=== PATIENT | male | born 1950 | race African-American/Black ===

== ENCOUNTER 2021-08-21 13:31 | Observation (INO) | payer OTHER ==
--- OUTSIDE RECORDS SUMMARY | 2021-08-21 13:35 | XMS REPORT | Continuity of Care Document ---
:1950 Author Organization [facility] t Address [address] [place] [address] Care Team Providers Name Role Phone Geno Mckinney Primary Care Physician Marquise Mckinney Attending Clinician Unavailable CHERRI Attending Clinician Unavailable Jessica ARIAS Attending Clinician Unavailable Azar ENRIQUE, Gene Attending Clinician Doctor Unassigned, Name Attending Clinician Unavailable Payers Payer Name Policy Type Policy Number Effective Date Expiration Date S daphnie [facility] MEDICARE [id number] 2019 ADVANTAGE HMO 00:00:00 MALCOLM DENG [id number] 2018 PLUS CLASSIC/VALUE 00:00:00 Problems Condition Condition Condition Status Onset Resolution Last Treating Co mments Source Name Details Category Date Date Treatment Clinician Date 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 06-24 Health insufficie insufficie 00:00: ncy ncy 00 Varicose Varicose Disease Active 2020-06 [facility] veins of veins of 0-27 Health both lower both lower 00:00: extremitie extremitie 00 s with s with inflammati inflammati on on No known No known Disease Unive rs active active ity of problems problems [facility] Allergies, Adverse Reactions, Alerts Allergy Allergy Status Severity Reaction(s) Onset Inactive Treating Comm ents Source Name Type Date Date Clinician NO KNOWN Drug Active Univers ALLERGIE Class ity of S [facility] Social History Social Habit Start Date Stop Date Quantity Comments Source History of Current smoker University of tobacco use [facility] Alcohol intake [facility] Tobacco use and 2021-04-11 2021-04-11 Smokeless tobacco [facility] exposure 00:00:00 00:00:00 non-user Alcohol Comment 2018-12-30 2018-12-30 socially Universit y of 00:00:00 00:00:00 [facility] Sex Assigned At [birth year] [facility] 00[facility] 00:00:00 Smoking Status Start Date Stop Date Source Ex-smoker 2021-04-11 00:00:00 2021-04-11 00:00:00 [facility] Medic[facility] Ordered Filled Start Stop Current Ordering Indication Dosage Frequency Signature Comments Components Source Medication Medication Date Date Medication? Clinician (SIG) Name Name enalapril 2020-06 Yes Q12H every 12 [facility] (Vasotec) 0-19 (twelve) Health 20 MG 15:45: hours. tablet 18 metFORMIN 2020-06 Yes Q12H every 12 [facility] (Glucophage 0-19 (twelve) Heal th ) 1000 MG 15:45: hours. tablet 18 propranolol 2020-06 Yes Q12H every 12 [facility] (Inderal) 0-19 (twelve) Health 20 MG 15:45: hours. tablet 18 tamsulosin 2020-06 Yes 1 (one) [facility] (Flomax) 0-19 time each Health 0.4 MG 24 15:45: day at the hr capsule 18 same time. enalapril 2020-06 Yes Q12H every 12 [facility] (Vasotec) 0-19 (twelve) Health 20 MG 15:45: hours. tablet 18 metFORMIN 2020-06 Yes Q12H every 12 [facility] (Glucophage 0-19 (twelve) Heal th ) 1000 MG 15:45: hours. tablet 18 propranolol 2020-06 Yes Q12H every 12 [facility] (Inderal) 0-19 (twelve) Health 20 MG 15:45: hours. tablet 18 tamsulosin 2020-06 Yes 1 (one) [facility] (Flomax) 0-19 time each Health 0.4 MG 24 15:45: day at the hr capsule 18 same time. atorvastati 2020-06 Yes 1{tbl} QD Take 1 [facility] n (Lipitor) 0-19 tablet by Hea lth 10 MG 15:45: mouth 1 tablet 17 (one) time each day. atorvastati 2020-06 Yes 1{tbl} QD Take 1 [facility] n (Lipitor) 0-19 tablet by Hea lth 10 MG 15:45: mouth 1 tablet 17 (one) time each day. glimepiride Yes [facility] (Amaryl) 4 7-31 Health MG tablet 00:00: 00 glimepiride Yes [facility] (Amaryl) 4 7-31 Health MG tablet 00:00: 00 multivitami Yes Take by Un candice n with 12-30 mouth. ity of minerals 21:25: [place] (ONE-A-DAY Medical 50 PLUS Branch ORAL) Cholecalcif Yes Take by Un candice vinay, 12-30 mouth. ity of Vitamin D3, 21:25: [place] 3,000 unit 09 Medical Tab Branch vit B Yes Take by [employer] complex 12-30 mouth. ity of no.12/niaci 21:25: [place] n,B3, 09 Medical (VITAMIN B Branch COMPLEX NO.12-NIACI N ORAL) omega-3 Yes Take by [employer] fatty 12-30 mouth. ity of acids/dha/e 21:25: [place] pa (MEGARED 09 Medical PLANT-OMEGA Branch -3 ORAL) multivitami Yes Take by Un candice n with 12-30 mouth. ity of minerals 21:25: [place] (ONE-A-DAY Medical 50 PLUS Branch ORAL) Cholecalcif Yes Take by Un candice vinay, 12-30 mouth. ity of Vitamin D3, 21:25: [place] 3,000 unit 09 Medical Tab Branch vit B 2019- Yes Take by Aquaporin 12-30 mouth. ity of no.12/niaci 21:25: [place] n,B3, 09 Medical (VITAMIN B Branch COMPLEX NO.12-NIACI N ORAL) omega-3 2019-0 Yes Take by [employer] fatty 12-30 mouth. ity of acids/dha/e 21:25: [place] pa (MEGARED 09 Medical PLANT-OMEGA Branch -3 ORAL) multivitami Yes Take by Un candice n with 12-30 mouth. ity of minerals 21:25: [place] (ONE-A-DAY 09 Medical 50 PLUS Branch ORAL) Cholecalcif 2019-0 Yes Take by Un candice vinay, 7- mouth. ity of Vitamin D3, 21:25: [place] 3,000 unit 09 Medical Tab Branch vit B 2019-0 Yes Take by Univers complex 7- mouth. ity of no.12/niaci 21:25: [place] n,B3, 09 Medical (VITAMIN B Branch COMPLEX NO.12-NIACI N ORAL) omega-3 2018-0 Yes Take by Univer s fatty 7- mouth. ity of acids/dha/e 21:25: [place] pa (MEGARED 09 Medical PLANT-OMEGA Branch -3 ORAL) multivitami 2018-0 Yes Take by Un candice n with 7- mouth. ity of minerals 21:25: [place] (ONE-A-DAY 09 Medical 50 PLUS Branch ORAL) Cholecalcif 0 Yes Take by Un candice vinay, 7- mouth. ity of Vitamin D3, 21:25: [place] 3,000 unit 09 Medical Tab Branch vit B 2019-0 Yes Take by Univers complex 7- mouth. ity of no.12/niaci 21:25: [place] n,B3, 09 Medical (VITAMIN B Branch COMPLEX NO.12-NIACI N ORAL) omega-3 2018- Yes Take by Univer s fatty 7-09 mouth. ity of acids/dha/e 21:25: [place] pa (MEGARED 09 Medical PLANT-OMEGA Branch -3 ORAL) aspirin 0 Yes Take by Univer s (ASPIR-81 7-09 mouth. ity of ORAL) 21:08: [address] aspirin 2018-0 Yes Take by Univer s (ASPIR-81 7-09 mouth. ity of ORAL) 21:08: [address] aspirin 2018-0 Yes Take by Univer s (ASPIR-81 7-09 mouth. ity of ORAL) 21:08: [address] aspirin 2018-0 Yes Take by Univer s (ASPIR-81 7-09 mouth. ity of ORAL) 21:08: [address] Branch atorvastati Yes TAKE 1 Univ ers n 10 mg 6-14 TABLET BY ity of tablet 00:00: MOUTH ONCE [place] 00 DAILY FOR Medical 90 DAYS Branch atorvastati Yes TAKE 1 Univ ers n 10 mg 6-14 TABLET BY ity of tablet 00:00: MOUTH ONCE DAILY FOR Medical 90 DAYS Branch atorvastati Yes TAKE 1 Univ ers n 10 mg 6-14 TABLET BY ity of tablet 00:00: MOUTH ONCE [place] DAILY FOR Medical 90 DAYS Branch atorvastati Yes TAKE 1 Univ ers n 10 mg 6-14 TABLET BY ity of tablet 00:00: MOUTH ONCE DAILY FOR Medical 90 DAYS Branch propranolol Yes Univer s 20 mg 5-07 ity of tablet 00:00: [place] [facility] propranolol 2018-0 Yes Univer s 20 mg 5-07 ity of tablet 00:00: [facility] propranolol Yes Univer s 20 mg 5-07 ity of tablet 00:00: [facility] propranolol Yes Univer s 20 mg 5-07 ity of tablet 00:00: [place] [facility] enalapril Yes Univers (VASOTEC) 8-15 ity of 20 mg 00:00: [place] tablet [facility] glimepiride Yes Univer s (AMARYL) 4 8-15 ity of mg tablet 00:00: [place] [facility] metFORMIN Yes Univers (GLUCOPHAGE 8-15 ity of ) 1,000 mg 00:00: [place] tablet [facility] enalapril Yes Univers (VASOTEC) 8-15 ity of 20 mg 00:00: [place] tablet 00 [facility] glimepiride Yes Univer s (AMARYL) 4 8-15 ity of mg tablet 00:00: [place] [facility] metFORMIN Yes Univers (GLUCOPHAGE 8-15 ity of ) 1,000 mg 00:00: [place] tablet 00 [facility] enalapril Yes Univers (VASOTEC) 8-15 ity of 20 mg 00:00: [place] tablet 00 [facility] glimepiride Yes Univer s (AMARYL) 4 8-15 ity of mg tablet 00:00: [place] [facility] metFORMIN 0 Yes Univers (GLUCOPHAGE 8-15 ity of ) 1,000 mg 00:00: [place] tablet 00 [facility] enalapril Yes Univers (VASOTEC) 8-15 ity of 20 mg 00:00: [place] tablet 00 [facility] glimepiride Yes Univer s (AMARYL) 4 8-15 ity of mg tablet 00:00: [place] 00 [facility] Branch metFORMIN Yes Univers (GLUCOPHAGE 8-15 ity of ) 1,000 mg 00:00: [place] tablet [facility] Branch Propranolol Propranolol Yes Na Mckinney [address] [facility] HCl HCl [facility] Metformin Metformin Yes Na Mckinney [address] [facility] HCl HCl with meals [facility] Tamsulosin Tamsulosin Yes Na Mckinney [address] [facility] HCl HCl [facility] Glyxambi Glyxambi Yes Na Mckinney [address] [facility] Pioglitazon Pioglitazon Yes Na Mckinney [address] [facility] e HCl e HCl [facility] Enalapril Enalapril Yes Na Mckinney [address] [facility] Maleate Maleate [facility] Glimepiride Glimepiride Yes Na Mckinney [address] [facility] with [facility] or the l first main Outpati meal of ent the day Clinics Myrbetriq Myrbetriq Yes Na Mckinney [address] [facility] Amaryl Amaryl Yes Na Mckinney [address] [facility] with food [facility] Gabapentin Gabapentin Yes Na Mckinney [address] [facility] Finasteride Finasteride Yes Na Mckinney [address] [facility] Gabapentin Gabapentin Yes Na Mckinney [address] [facility] Atorvastati Atorvastati Yes Na Mckinney [address] [facility] n Calcium n Calcium [facility] SMZ-TMP DS SMZ-TMP DS Yes Na Mckinney not [facility] defined [facility] Immunizations Ordered Filled Immunization Date Status Comments [facility] e Immunization Name Name FluDULCE FluAD 2019-04-[address] [facility] - 00:00:00 [facility] Prevnar 13 Prevnar 13 2018-07-[address] [facility] - -Pneumonia Vaccine -Pneumonia Vaccine 00:00:00 [facility] Vital Signs Vital Name Observation Time Observation Value Comments Source Systolic blood 2019-01-23 20:42:00 123 mm[Hg] Univer sity of pressure [facility] Diastolic blood 2019-01-23 20:42:00 80 mm[Hg] Unive rsity [facility] Heart rate 2019-01-23 20:42:00 101 /min [facility] Body temperature 2019-01-23 20:42:00 36.67 Natalie [facility] Respiratory rate 2019-01-23 20:42:00 16 /min [facility] Body height 2019-01-23 20:42:00 177.8 cm [facility] Body weight 2019-01-23 20:42:00 82.271 kg [facility] BMI 2019-01-23 20:42:00 26.02 kg/m2 [facility] Procedures Procedure Date / Time Performed Performing Clinician Sourc e MR BRAIN WO CONTRAST 2019-01-22 15:25:00 Bhanu Askew [facility] ASSIGNMENT OF BENEFITS 2019-01-22 14:05:46 Doctor Unassigned, No [facility] Encounters Start End Encounter Admission Attending Care Care Encounter Source Date/Time Date/Time Type Type Clinicians Facility Department ID 2021-07-19 Outpatient Mckinney, Na STLMLC [facility] [id number] [facility] 14:16:00 [id number] [facility] 2021-07-19 Outpatient Mckinney, Na STLMLC STLMLC [id number] [facility] 14:01:34 [id number] [facility] 2021-07-19 Outpatient Mckinney, Na STLMLC STLMLC [id number] [facility] 13:44:11 [id number] [facility] 2021-07-19 Outpatient Mckinney, Na STLMLC STLMLC [id number] [facility] 13:39:45 [id number] [facility] 2021-07-19 Outpatient Mckinney, Na STLMLC STLMLC [id number] [facility] 12:29:08 [id number] [facility] 2021-07-19 Outpatient Mckinney, Na STLMLC STLMLC [id number] [facility] 12:27:34 [id number] [facility] 2021-07-19 Outpatient Mckinney, Na STLMLC STLMLC [id number] [facility] 12:04:29 [id number] [facility] 2021-07-19 Outpatient Mckinney, Na STLMLC STLMLC [id number] [facility] 12:02:37 [id number] [facility] 2021-07-19 Outpatient Mckinney, Na STLMLC STLMLC [id number] [facility] [facility] 11:35:04 [id number] [facility] 2021-07-19 Outpatient Mckinney, Na STLMLC STLMLC [id number] [facility] [facility] 11:20:33 [id number] [facility] 2021-07-19 Outpatient Faye, Na STLMLC STLMLC [id number] [facility] [facility] 11:05:46 [id number] [facility] 2021-07-19 Outpatient Mckinney, Na STLMLC STLMLC [id number] [facility] 11:04:11 [id number] [facility] 2021-04-24 Outpatient [facility] [id number] [place] 11:41:32 [facility] 2021-04-11 Outpatient [facility] [id number] [place] 12:03:23 [facility] 2021-04-11 Outpatient [facility] [id number] [place] 12:01:39 [facility] 2021-03-16 Outpatient CHERRI, [facility] [id number] [place] 13:11:05 [facility] 2021-08-11 2021-08-11 ambulatory [facility]MLC [facility] [id number] [facility] 2021-08-04 2021-08-04 ambulatory [facility]MLC [facility] [id number] [facility] 2021-06-08 2021-06-08 ambulatory [facility]LMLC [facility] [id number] [facility] 2021-06-01 2021-06-01 amb[facility] [id number] [facility] 2021-05-12 2021-05-12 ambulatory [facility] [id number] [facility]00 [facility] 2021-05-04 2021-05-04 ambulatory [facility] [id number] [facility]00 [facility] 2021-05-04 2021-05-04 ambulatory [facility] [id number] [facility] 2021-04-24 2021-04-24 Office ABDULAZIZ Flynn [facility] [id number] [place] 12:20:17 12:23:23 Visit Blaine PFEIFFER [id number] oJseluis [facility] [id number] CLINIC [id number] 2021-04-11 2021-04-11 Office ABDULAZIZ Flynn [facility] [id number] [place] 11:37:35 12:08:38 Visit Blaine LUIS [id number] Joseluis ARENAS 1 [id number] 2021-04-04 2021-04-04 amb[facility] [id number] [facility] 2021-03-15 2021-03-15 Outpatient [facility] [id number] [facility] 2021-02-28 2021-02-28 Outpatient [facility] [id number] [facility] 2021-02-22 2021-02-22 Out[facility] [id number] [facility] 2021-02-22 2021-02-22 Outpatient [facility] [id number] [facility] 2021-02-08 2021-02-08 Outpatient [facility] [id number] [facility] 2021-02-07 2021-02-07 Outpatient [facility] [id number] [facility] 2021-01-30 2021-01-30 Outpatient [facility] [id number] [facility] 2021-01-03 2021-01-03 Outpatient [facility] [id number] [facility] 2020-11-01 2020-11-01 Outpatient [facility] [id number] [facility] 2020-09-21 2020-09-21 Outpatient [facility] [id number] [facility] 2020-08-28 2020-08-28 Outpatient [facility] [id number] Univers 15:10:00 15:10:00 [facility] 2020-08-25 2020-08-25 Outpatient [facility] [id number] [facility] 2020-08-02 2020-08-02 Outpatient [facility] [id number] [facility]00 [facility] 2020-07-31 2020-07-31 Outpatient Dawit ARIAS, [facility] [id number] Univers 15:10:00 15:10:00 KIM [facility] 2020-05-19 2020-05-19 Outpatient [facility] [id number] [facility]00 [facility] 2020-05-02 2020-05-02 Outpatient [facility] [id number] [facility]00 [facility] 2020-04-11 2020-04-11 Outpatient [facility] [id number] [facility]00 [facility] 2020-04-04 2020-04-04 Out[facility] [id number] [facility] 2020-01-29 2020-01-29 [facility] [id number] [facility] 16:00:00 16:00:00 t [employer] [facility] Medicine l Medicine Outpati ent Clinics 2020-01-05 2020-01-05 [facility] [id number] 13:45:00 13:45:[address] [facility] l Medicine Outpati ent Clinics 2019-10-29 2019-10-29 [facility] [id number] [facility] 16:40:00 16:40:00 t [employer] [facility] Medicine l Medicine Outpati ent Clinics 2019-07-31 2019-07-31 [facility] [id number] 16:00:00 16:00:00 [place] [employer] - [facility] Medicine l Medicine Outpati ent Clinics 2019-07-24 2019-07-24 [facility] [id number] [facility] 13:38:00 13:38:00 [place] [employer] - [facility] Medicine l Medicine Outpati ent Clinics 2019-07-22 2019-07-22 [facility] [id number] 14:56:00 14:56:00 t [employer] - Drive [facility] Medicine l Medicine Outpati ent Clinics 2019-04-30 2019-04-30 [facility] [id number] [address] 15:40:00 15:40:00 [place] [employer] - [facility] Medicine Outpati ent Clinics 2019-04-29 2019-04-29 [facility] [id number] 11:01:00 11:01:00 t [place] [employer] [facility] 2019-03-10 2019-03-10 [facility] [id number] 10:42:00 10:42:00 t [place] [employer] [facility] 2019-02-17 2019-02-17 [facility] [id number] 14:40:00 14:40:00 t [place] [employer] [facility] 2019-01-27 2019-01-27 [facility] [id number] [facility] 16:00:00 16:00:00 t [employer] [facility] 2019-01-23 2019-01-23 [place] [id number] [facility] 14:48:40 16:58:59 Visit Bhanu Silva [id number] ity of [place] [id number] [facility] [id number] [facility] 092 Branch [facility] 2019-01-22 2019-01-22 [facility] [id number] Univers 09:11:08 23:59:00 Encounter Bhanu Silva [id number] ity of [place] [id number] [facility] [id number] [facility] 804 Branch 2019-01-22 2019-01-22 Orders Doctor DORSEY [id number] Univers 00:00:00 00:00:00 Only Unassigned, LYUDMILA [id number] ity of [place] [facility] [id number] [facility] [id number] [facility] 009 Branch 2018-12-30 2018-12-30 [facility] [id number] 15:55:00 15:55:00 t [employer] s - Drive [facility] Medicine Outpati ent Clinics 2018-12-03 2018-12-03 [facility] [id number] 16:44:00 16:44:00 t [place] [employer] - Drive [facility] Medicine Outpati ent Clinics 2018-10-07 2018-10-07 [facility] [id number] 09:18:00 09:18:00 t [place] [employer] - Drive [facility] Medicine Outpati ent Clinics 2018-07-30 2018-07-30 [facility] [id number] 15:00:00 15:00:00 t [place] [employer] - Drive [facility] Medicine Outpati ent Clinics 2018-07-22 2018-07-22 [facility] [id number] [facility] 10:45:00 10:45:00 t [place] [employer] [facility] Medicine Outpati ent Clinics 2018-07-03 2018-07-03 [facility] [id number] 15:56:00 15:56:00 t [place] [employer] - [facility] Medicine Outpati ent Clinics 2018-07-03 2018-07-03 [facility] [id number] [facility] 13:29:00 13:29:00 t [place] [employer] [facility] Medicine Outpati ent Clinics 2018-04-24 2018-04-24 Outpatient [facility]MLC [facility] [id number] [facility] 00:00:00 00:00:00 [facility] Outpati ent Clinics 2018-01-22 2018-01-22 [facility] [id number] 15:30:00 15:30:00 t [employer] s - Drive [facility] Medicine Outpati ent Clinics Results Test Description Test Time Test Results Result Source Comments Comments MR BRAIN WO HISTORY: Tremors. Rule U niversity of CONTRAST 1 [place]thalamic [place] 15:42:56 TECHNIQUE: Routine MRI Br anch of the brain was completed without contrastinjection technique. Examination includes sagittal T1/T2 FLAIR/3-D FSPGR,axial T2 FLAIR, DWI/ADC studies. From the 3-D imaging, subsequently axialand coronal reformations were generated. An additional gradient echo T2*axial study was also obtained. FINDINGS: Dual echo DWI images showed no focal areas of restricted protondiffusion, therefore, recent intracranial cytotoxic event is not suspected.Gradient-ech o T2 star images showed no focal areas of abnormal signalsuggestive of hemosiderin effect or abnormal mineral deposition in thebasal ganglia. T2 and FLAIR images showed several 2 mm to 2 cm size hyperintense lesionsin both periventricular as well as peripheral white matter involvingfrontal/parie nolberto/occipital lobes. One small 3 mm lacunar infarction is seenin the white matter adjacent to the atrium of left lateral ventricle. Ventricular system and cortical sulci are within normal limits for thepatient's age. No midline shift or abnormal fluid collection in theextra-axial compartment or pressure effect of the brain detected. Normal signal void of major intracranial vascular structures is preserved.Basal ganglia, brain stem and posterior fossa structures including internalauditory canals and mastoids appear normal. Pituitary gland, parasellar andsuprasellar regions, grossly orbits and retro-orbital regions appearnormal. Note made of mild changes of chronic sinusitis involving all paranasalsinuses with retained secretions in the left maxillary sinus raisingconcern for superimposed mild acute left maxillary sinusitis. CONCLUSION:1. No acute intracranial findings.2. 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 [id number] ischemic white matter degenerative changes in theperiventricular as well as peripheral white matter of both cerebralhemispheres, possibly due to combination of systemic hypertension as wellas small vessel disease. Please correlate with history. [facility], Radiant Results Inft User - 01/22/2019 10:43 AM CDTHISTORY: Tremors. Rule out subthalamic CVA.TECHNIQUE: Routine MRI of the brain was completed without contrastinjection technique. Examination includes sagittal T1/T2 FLAIR/3-D FSPGR,axial T2 FLAIR, DWI/ADC studies. From the 3-D imaging, subsequently axialand coronal reformations were generated. An additional gradient echo T2*axial study was also obtained.FINDINGS: Dual echo DWI images showed no focal areas of restricted protondiffusion, therefore, recent intracranial cytotoxic event is not suspected.Gradient-ech o T2 star images showed no focal areas of abnormal signalsuggestive of hemosiderin effect or abnormal mineral deposition in thebasal ganglia.T2 and FLAIR images showed several 2 mm to 2 cm size hyperintense lesionsin both periventricular as well as peripheral white matter involvingfrontal/parie nolberto/occipital lobes. One small 3 mm lacunar infarction is seenin the white matter adjacent to the atrium of left lateral ventricle.Ventricular system and cortical sulci are within normal limits for thepatient's age. No midline shift or abnormal fluid collection in theextra-axial compartment or pressure effect of the brain detected.Normal signal void of major intracranial vascular structures is preserved.Basal ganglia, brain stem and posterior fossa structures including internalauditory canals and mastoids appear normal. Pituitary gland, parasellar andsuprasellar regions, grossly orbits and retro-orbital regions appearnormal.Note made of mild changes of chronic sinusitis involving all paranasalsinuses with retained secretions in the left maxillary sinus raisingconcern for superimposed mild acute left maxillary sinusitis.CONCLUSION:1 . No acute intracranial findings.2. 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 [id number] ischemic white matter degenerative changes in theperiventricular as well as peripheral white matter of both cerebralhemispheres, possibly due to combination of systemic hypertension as wellas small vessel disease. Please correlate with history.
[2021-08-21] MEDS ORDERED: ONDANSETRON 4 MG/2 ML VIAL ONE (14:40)
[2021-08-21] MEDS ORDERED: MORPHINE 2 MG/ML SYR ONE (14:40)
[2021-08-21 14:59] LABS: Absolute Lymphocytes (CBC) 5.1 K/uL (0.7-4.9); Hematocrit 46.3 % (39.6-49.0); Lymphocytes % 37.9 % (15.3-44.8); MPV 8.6 fL (7.6-11.3); Protime INR 1.1; RBC Red Blood Cell Count 5.16 M/uL (4.33-5.43)
--- NOTE | 2021-08-21 15:11 | RAD REPORT ---
EXAM DESCRIPTION: CT - Chest For Pe Angio - 08/21/2021 3:02 pm CLINICAL HISTORY: Chest pain COMPARISON: None. TECHNIQUE: Dynamically enhanced axial 3 mm thick images of the chest were obtained during administra tion of <100> mL Isovue 370 IV contrast. Coronal and oblique reconstruction images were generated and reviewed. Exam utilizes a protocol for optimal evaluation of pulmonary arterial tree. Maximum intensity projections 3D imaging was utilized All CT scans are performed using dose optimization technique as appropriate and may include automated exposure control or mA/KV adjustment according to patient size. FINDINGS: A pulmonary embolus is not seen. A thoracic aortic aneurysm is not noted. Small right pleural effusion. Mild right lower lobe atelectasis. A pericardial effusion is not seen. Paraseptal emphysema. The largest bleb measures 7 centimeters within left lung. IMPRESSION: Negative for a pulmonary embolism.
[2021-08-21 15:19] LABS: Albumin 3.9 g/dL (3.4-5.0); Bilirubin Direct 0.1 mg/dL (0-0.2); Bilirubin Total 0.3 mg/dL (0.2-1.0); Magnesium 2.4 mg/dL (1.8-2.4); Potassium 4.3 mmol/L (3.5-5.1); Protein, Total 8.3 g/dL (6.4-8.2); Troponin High Sensitivity 5.4 pg/mL (<58.9)
--- NOTE | 2021-08-21 15:19 | RAD REPORT ---
EXAM DESCRIPTION: Lilibeth Single View08/21/2021 2:18 pm CLINICAL HISTORY: Chest pain COMPARISON: 2014 FINDINGS: A small right pleural effusion with mild right basilar atelectasis A few areas of subsegmental atelectasis left lung base Heart is normal size
[2021-08-21] MEDS ORDERED: MORPHINE 4 MG/ML SYR ONE (16:00)
--- NOTE | 2021-08-21 16:45 | RAD REPORT ---
EXAM DESCRIPTION: US - Abdomen Exam Limited - 08/21/2021 4:37 pm CLINICAL HISTORY: Abdominal pain. COMPARISON: None. FINDINGS: The gallbladder wall is not thickened. A gallstone is not seen. The biliary tree is normal caliber. IMPRESSION: Unremarkable gallbladder ultrasound.
--- NOTE | 2021-08-21 16:45 | ER ---
Nurse's Notes [facility] Name: Jose Scott Age: 71 yrs Sex: Male : 1950 Arrival Date: 08/21/2021 Time: 13:33 Bed 6 Private MD: Dilma Mckinney Diagnosis: Chest pain, unspecified Presentation: 08/21 13:42 Chief complaint: Patient states: Pt reports sharp rt sided chest pain that is worse jh6 with deep breath and movement. Sudden onset 2days ago that has been constant. no fever or cough prior. Coronavirus screen: Vaccine status: Patient reports receiving the 2nd dose of the covid vaccine. Ebola Screen: Patient denies travel to an Ebola-affected area in the 21 days before illness onset. Initial Sepsis Screen: Does the patient meet any 2 criteria? Mean Arterial Pressure (MAP) < 65. HR > 90 bpm. Does the patient have a suspected source of infection? No. Patient's initial sepsis screen is negative. Risk Assessment: Do you want to hurt yourself or someone else? Patient reports no desire to harm self or others. Onset of symptoms was August 19, 2021. 13:42 Method Of Arrival: Ambulatory [facility] 13:42 Acuity: SUAD 3 [facility] Triage Assessment: 13:45 General: Appears in no apparent distress. Behavior is calm, cooperative. Pain: [facility] Complains of pain in right breast Pain currently is 5 out of 10 on a pain scale. Quality of pain is described as sharp, shooting, Pain began suddenly, Is continuous, Aggravated by exercise. Cardiovascular: Capillary refill < 3 seconds. Historical: - Allergies: 13:45 No Known Allergies; jh - PMHx: 13:45 Diabetes mellitus; Hypertensive disorder; 6 - Immunization history:: Client reports receiving the 2nd dose of the Covid vaccine. - Social history:: Smoking status: Patient denies any tobacco usage or history of. Screenin:17 Abuse screen: Denies threats or abuse. Nutritional screening: No deficits noted. st1 Tuberculosis screening: No symptoms or risk factors identified. Fall Risk None identified. No fall in past 12 months (0 pts). No secondary diagnosis (0 pts). IV access (20 points). Ambulatory Aid- None/Bed Rest/Nurse Assist (0 pts). Gait- Normal/Bed Rest/Wheelchair (0 pts) Mental Status- Oriented to own ability (0 pts). Total Dominguez Fall Scale indicates No Risk (0-24 pts). Assessment: 14:01 General: Appears in no apparent distress. Behavior is calm, cooperative. Pain: ke1 Complains of pain in chest Pain currently is 5 out of 10 on a pain scale. at worst was 9 out of 10 on a pain scale. level that patient reports is acceptable is 5 out of 10 on a pain scale. Alleviated by rest, Aggravated by exercise, repositioning. Neuro: Level of Consciousness is awake, alert, Oriented to person, place, time, situation. Cardiovascular: Reports chest pain, Heart tones S1 S2 Capillary refill < 3 seconds Patient's skin is warm and dry. Pulses are all present. Respiratory: Airway is patent Breath sounds are clear bilaterally. GI: Abdomen is non-distended. : No deficits noted. 15:15 Reassessment: Patient states symptoms have improved. Pain: Pain currently is 4 out of ke1 10 on a pain scale. 16:00 Pain: Complains of pain in chest Pain currently is 7 out of 10 on a pain scale. ke1 16:35 Reassessment: Patient states symptoms have improved. Pain: Pain currently is 3 out of ke1 10 on a pain scale. 17:39 Reassessment: No changes from previously documented assessment. ke1 19:30 Reassessment: Patient appears in no apparent distress at this time. Patient and/or st1 family updated on plan of care and expected duration. Pain level reassessed. Patient is alert, oriented x 3, equal unlabored respirations, skin warm/dry/pink. The patient is lying in bed in stable condition. Vitals are stable. The patient denies pain 0/10. 20:30 Reassessment: The patient was updated on admission status. st1 Vital Signs: 13:42 BP 142 / 81; Pulse 122; Resp 20; Temp 97.9(TE); Pulse Ox 100% ; Weight 83.01 kg; Height jh6 5 ft. 8 in. (172.72 cm); Pain 5/10; 14:00 BP 146 / 78; Pulse 116; Resp 18; Temp 98.5; Pulse Ox 97% on R/A; ke1 16:00 BP 143 / 82; Pulse 103; Resp 22; Pulse Ox 99% on R/A; ke1 17:30 BP 121 / 101; Pulse 92; Resp 19; Pulse Ox 99% on R/A; ke1 18:30 BP 130 / 71; Pulse 103; Resp 16; Pulse Ox 98% on R/A; st1 20:20 BP 132 / 77; Pulse 95; Resp 16; Pulse Ox 95% on R/A; st1 22:21 BP 120 / 81; Pulse 88; Resp 16; Pulse Ox 99% on R/A; st1 13:42 Body Mass Index 27.82 (83.01 kg, 172.72 cm) 6 Vitals: 14:00 Cardiac Rhythm Assessment Regular Sinus rhythm. ke1 ED Course: 13:33 Patient arrived in ED. am2 13:33 Dilma Mckinney MD is Private Physician. am2 13:44 Triage completed. jh6 13:46 Arm band placed on left wrist. 6 13:50 Brendan Oconnell, PARRIS is Primary Nurse. ke1 13:51 Andre Moore PA is PHCP. [facility] 13:51 Magdiel Pascual MD is Attending Physician. [facility] 13:58 EKG done, by ED staff, reviewed by Andre VIGIL. mb7 14:15 Missed attempt(s): 20 gauge in left forearm. ke1 14:18 XRAY Chest (1 view) In Process Unspecified. EDMS 14:22 Missed attempt(s): 22 gauge in left forearm. ke1 14:45 Missed attempt(s): 22 gauge in left forearm. Bleeding controlled, band aid applied, jd3 catheter tip intact. 14:49 Inserted saline lock: 22 gauge in left antecubital area, using aseptic technique. Blood jd3 collected. 15:01 CT Chest For PE Angio In Process Unspecified. EDMS 16:37 US Abdomen Limited In Process Unspecified. EDMS 16:45 Taras Tomlinson MD is Hospitalizing Provider. [facility] 19:00 Patient has correct armband on for positive identification. Bed in low position. Call st1 light in reach. Side rails up X 1. Pulse ox on. NIBP on. 22:01 No provider procedures requiring assistance completed. Patient maintains SpO2 st1 saturation greater than 95% on room air. 22:18 Patient admitted, IV remains in place. st1 Administered Medications: 14:54 Drug: morphine 2 mg Route: IVP; Site: left antecubital; ke1 15:15 Follow up: Response: Pain is decreased ke1 14:54 Drug: Zofran (Ondansetron) 4 mg Route: IVP; Site: left antecubital; ke1 15:15 Follow up: Response: No adverse reaction ke1 16:06 Drug: morphine 4 mg Route: IVP; Site: left antecubital; ke1 17:33 Follow up: Response: Pain is decreased; RASS: Alert and Calm (0) ke1 17:29 Drug: Aspirin Chewable Tablet 324 mg Route: PO; ke1 Outcome: 16:45 Decision to Hospitalize by Provider. [facility] 22:18 Condition: good st1 22:18 Condition: improved 22:18 Instructed on the need for admit. 23:00 Admitted to Med/surg accompanied by tech, via stretcher, with chart. st1 23:01 Patient left the ED. mw2 Signatures: Dispatcher [employer] EDMS Andre Moore PA PA Tammy Solorzano am2 Johan An RN RN Rodrigo Hardwick mw2 Tawana Justice RN RN jh6 Greer Ramirez mb7 Rose Manzano, RN RN st1 Brendan Oconnell RN RN ke1 Corrections: (The following items were deleted from the chart) 14:05 14:01 Pain: Complains of pain in chest Pain currently is 5 out of 10 on a pain scale. ke1 at worst was 9 out of 10 on a pain scale. level that patient reports is acceptable is 5 out of 10 on a pain scale. Alleviated by rest, Aggravated by exercise, repositioning, ke1 14:50 14:49 Inserted saline lock: 22 gauge in left antecubital area, using aseptic technique. jd3 Blood collected. Missed attempt(s): 22 gauge in left forearm. Bleeding controlled, band aid applied, catheter tip intact. jd3 17:33 16:15 Response: Pain is decreased ke1 ke1 03/01 04:33 02/28 22:[address]1 st1
--- NOTE | 2021-08-21 16:45 | EDPHYS ---
Physician Documentation [facility] Name: Jose Scott Age: 71 yrs Sex: Male : 1950 Arrival Date: 08/21/2021 Time: 13:33 Bed 6 Private MD: Dilma Mckinney ED Physician Magdiel Pascual HPI: 08/21 13:56 This 71 yrs old Black Male presents to ER via Ambulatory with complaints of Chest Pain. jmm 13:56 The patient or guardian reports chest pain that is located primarily in the substernal [facility] area. Onset: gradually, 3 day(s) ago. The pain radiates to Right-sided. Associated signs and symptoms: Pertinent positives: shortness of breath. This is a 71-year-old male with history of diabetes mellitus, hypertension the presents emerged part with complaints of right-sided chest pain beginning approximately 3 to 4 days ago. Patient states that the pain radiates into the mid substernal region. 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 Patient is never seen a cylinder press operator with his PCP.. Historical: - Allergies: 13:45 No Known Allergies; [facility] - PMHx: 13:45 Diabetes mellitus; Hypertensive disorder; [facility] - Immunization history:: Client reports receiving the 2nd dose of the Covid vaccine. - Social history:: Smoking status: Patient denies any tobacco usage or history of. ROS: 13:56 Constitutional: Negative for fever, chills, and weight loss. jmm 13:56 Cardiovascular: Positive for chest pain. 13:56 Respiratory: Positive for shortness of breath. 13:56 All other systems are negative. Exam: 13:56 Constitutional: This is a well developed, well nourished patient who is awake, alert, jmm and in no acute distress. Head/Face: atraumatic. Eyes: EOMI, no conjunctival erythema appreciated ENT: Moist Mucus Membranes Neck: Trachea midline, Supple Cardiovascular: Regular rate and rhythm. No edema appreciated 13:56 Respiratory: Normal respirations, no respiratory distress appreciated Abdomen/GI: Non distended, soft Back: Normal ROM Skin: General appearance color normal MS/ Extremity: Moves all extremities, no obvious deformities appreciated, no edema noted to the lower extremities Neuro: Awake and alert Psych: Behavior is normal, Mood is normal, Patient is cooperative and pleasant 13:56 Chest/axilla: Palpation: tenderness, that is moderate, of the right lateral anterior chest. Vital Signs: 13:42 BP 142 / 81; Pulse 122; Resp 20; Temp 97.9(TE); Pulse Ox 100% ; Weight 83.01 kg; Height 6 5 ft. 8 in. (172.72 cm); Pain 5/10; 14:00 BP 146 / 78; Pulse 116; Resp 18; Temp 98.5; Pulse Ox 97% on R/A; ke1 16:00 BP 143 / 82; Pulse 103; Resp 22; Pulse Ox 99% on R/A; ke1 17:30 BP 121 / 101; Pulse 92; Resp 19; Pulse Ox 99% on R/A; ke1 18:30 BP 130 / 71; Pulse 103; Resp 16; Pulse Ox 98% on R/A; st1 20:20 BP 132 / 77; Pulse 95; Resp 16; Pulse Ox 95% on R/A; st1 22:21 BP 120 / 81; Pulse 88; Resp 16; Pulse Ox 99% on R/A; st1 13:42 Body Mass Index 27.82 (83.01 kg, 172.72 cm) jh6 MDM: 13:56 Patient medically screened. tresa 16:44 Data reviewed: vital signs, nurses notes. Counseling: I had a detailed discussion with conrad the patient and/or guardian regarding: the historical points, exam findings, and any diagnostic results supporting the discharge/admit diagnosis, lab results, radiology results, the need for further work-up and treatment in the hospital. ED course: I discussed the patient with Dr. Tomlinson whom accepted the patient to his service. . 08/21 14:05 Order name: Basic Metabolic Panel; Complete Time: 15:20 [facility] 08/21 14:05 Order name: CBC with Diff; Complete Time: 15:20 [facility] 08/21 14:05 Order name: LFT's; Complete Time: 15:20 [facility] 08/21 14:05 Order name: Magnesium; Complete Time: 15:20 [facility] 08/21 14:05 Order name: NT PRO-BNP; Complete Time: 15:20 [facility] 08/21 14:05 Order name: PT-INR; Complete Time: 15:20 [facility] 08/21 14:05 Order name: Troponin HS; Complete Time: 15:20 [facility] 08/21 14:05 Order name: XRAY Chest (1 view); Complete Time: 15:21 [facility] 08/21 14:06 Order name: COVID-19/FLU A+B (Document "Date of Onset" if Symptomatic) [facility] 08/21 15:25 Order name: CREATININE WHOLE BLOOD; Complete Time: 15:43 [facility] 08/21 16:25 Order name: SARS-COV-2 RT PCR (Document "Date of Onset" if Symptomatic) [facility] 08/21 16:55 Order name: CKMB Creatine Kinase MB [facility] 08/21 16:55 Order name: Creatine Phosphokinase [facility] 08/21 22:56 Order name: Glucose, Ancillary Testing [facility] 08/21 14:05 Order name: EKG; Complete Time: 14:06 [facility] 08/21 14:05 Order name: Cardiac monitoring; Complete Time: 14:06 [facility] 08/21 14:06 Order name: EKG - Nurse/Tech; Complete Time: 14:06 [facility] 08/21 14:06 Order name: IV Saline Lock; Complete Time: 14:55 [facility] 08/21 14:06 Order name: Labs collected and sent; Complete Time: 14:55 [facility] 08/21 14:06 Order name: O2 Per Protocol; Complete Time: 14:06 [facility] 08/21 14:06 Order name: O2 Sat Monitoring; Complete Time: 14:06 [facility] 08/21 14:18 Order name: CT Chest For PE Angio; Complete Time: 15:20 [facility] 08/21 15:57 Order name: US Abdomen Limited; Complete Time: 16:48 [facility] 08/21 16:55 Order name: 60g Consistent Carbohydrate (ADA 1800/1999) EDMS Administered Medications: 14:54 Drug: morphine 2 mg Route: IVP; Site: left antecubital; ke1 15:15 Follow up: Response: Pain is decreased ke1 14:54 Drug: Zofran (Ondansetron) 4 mg Route: IVP; Site: left antecubital; ke1 15:15 Follow up: Response: No adverse reaction ke1 16:06 Drug: morphine 4 mg Route: IVP; Site: left antecubital; ke1 17:33 Follow up: Response: Pain is decreased; RASS: Alert and Calm (0) ke1 17:29 Drug: Aspirin Chewable Tablet 324 mg Route: PO; ke1 Disposition Summary: 08/21/21 16:45 Hospitalization Ordered Hospitalization Status: Observation [facility] Provider: Taras Tomlinson Condition: Stable jmm Problem: new jmm Symptoms: are unchanged jmm Bed/Room Type: Standard jmm Location: Telemetry/MedSurg (observation)(08/21/21 21:04) mw Room Assignment: 419(08/21/21 21:04) Diagnosis - Chest pain, unspecified jmm Forms: - Medication Reconciliation Form jmm - SBAR form jmm Addendum: 08/24/2021 09:24 Co-signature as Attending Physician, Magdiel Pascual MD I agree with the assessment and c ramires plan of care. Signatures: Dispatcher [employer] EDMS Phyllis Pelaez Martha, RN RN Magdiel Leal MD MD cha Mickail, Joel PA PA Tawana Jiang RN RN jh6 Brendan Oconnell RN RN ke1 Corrections: (The following items were deleted from the chart) 08/21 17:42 16:45 Telemetry/MedSurg (observation) [facility] bd 17:42 16:45 jmm bd 21:04 17:42 [facility] ER HOLD bd mw 21:04 17:42 ERHOLD- bd mw
--- NOTE | 2021-08-21 16:51 | P.HP ---
Certification for Inpatient Patient admitted to: Observation With expected LOS: >2 Midnights Patient will require the following post-hospital care: None Practitioner: I am a practitioner with admitting privileges, knowledge of patient current condition, hospital course, and medical plan of care. Services: Services provided to patient in accordance with Admission requirements found in Title 42 Section 412.3 of the Code of Federal Regulations Patient History Date of Service: 08/21/21 Reason for admission: Substernal chest pain History of Present Illness: 71-year-old male with past medical history of hypertension, diabetes mellitus type 2, hyperlipidemia, no previous cardiac history presented because of substernal chest pain radiating to the right side since the last 3 days. Pain is intermittent, no associated palpitation, no prior history of heart burn. On arrival in the ED, vitals were stable, EKG was unremarkable with normal sinus rhythm and no EKG changes. Chest x-ray shows no acute infiltrate. CT shows no evidence of PE but small right-sided pleural effusion. Patient admits to intermittent lower extremity swelling. He denies any exertional dyspnea or paroxysmal nocturnal dyspnea. patient received 2 doses of COVID vaccine. proBNP was normal at 22. He has been admitted for rule out acute coronary syndrome. - Past Medical/Surgical History Has patient received pneumonia vaccine in the past: No Diabetic: No Past Medical History: Reviewed- Non-Contributory -: Hypertension -: Diabetes mellitus Past Surgical History: Reviewed- Non-Contributory - Family History Family History: Reviewed- Non-Contributory - Social History Smoking Status: Current every day smoker Counseled patient to stop smoking for: less than 10 minutes Smoking therapy provided: No Patient receptive to therapy: No Alcohol use: No Place of Residence: Home Review of Systems 10-point ROS is otherwise unremarkable Physical Examination - Physical Exam General: Alert, In no apparent distress, Oriented x3 HEENT: Atraumatic, Normocephalic Neck: 2+ carotid pulse no bruit, JVD not distended Respiratory: Clear to auscultation bilaterally, Normal air movement Cardiovascular: No edema, Regular rate/rhythm, Normal S1 S2 Gastrointestinal: Normal bowel sounds, Soft and benign, Non-distended Musculoskeletal: No clubbing, No swelling Integumentary: No rashes, No breakdown, No significant lesion Neurological: Normal speech, Normal strength at 5/5 x4 extr, Normal tone, Sensation intact External genitalia: No edema, No lesions - Studies Laboratory Data (last 24 hrs) 08/21/21 14:45: PT 12.7 H, INR 1.10 08/21/21 14:45: WBC 13.60 H, Hgb 14.9, Hct 46.3, Plt Count 316 08/21/21 14:45: Sodium 137, Potassium 4.3, BUN 17, Creatinine 1.12, Glucose 179 H, Magnesium 2.4, Total Bilirubin 0.3, AST 11 L, ALT 24, Alkaline Phosphatase 106 Assessment and Plan Discharge Plan: Home - Advance Directives Does patient have a Living Will: No Does patient have a Durable POA for Healthcare: No - Code Status/Comfort Care Code Status Assessed: Yes Code Status: Full Code Physician Review: Patient Assessed, Agree with Above Assessment and Plan Physician Review Additional Text: All CT scans are performed using dose optimization technique as appropriate and may include automated exposure control or mA/KV adjustment according to patient size. FINDINGS: A pulmonary embolus is not seen. A thoracic aortic aneurysm is not noted. Small right pleural effusion. Mild right lower lobe atelectasis. A pericardial effusion is not seen. Paraseptal emphysema. The largest bleb measures 7 centimeters within left lung. IMPRESSION: Negative for a pulmonary embolism. Impression Atypical right-sided chest painpossibly related to pleurisy Hypertension Diabetes mellitus Small right-sided pleural effusion Plan We will do serial set of cardiac enzymes although less likely coronary syndrome at this time We will start empirical antibiotics and colchicine twice daily for 2 to 3 days since possible pleurisy Rule out COVID screen If negative work-up in a.m. patient might benefit from outpatient echocardiogram No urgent need for cardiology consult at this time but will follow DVT prophylaxis with subcutaneous heparin
[2021-08-21] MEDS ORDERED: ONDANSETRON 4 MG/2 ML VIAL IV PRN (16:52)
[2021-08-21] MEDS ORDERED: ALBUTEROL 2.5 MG/3 ML NEB SOL NEB PRN (16:52)
[2021-08-21] MEDS ORDERED: HYDRALAZINE HCL 20 MG/ML VIAL IV PRN (16:53)
[2021-08-21] MEDS ORDERED: guaiFENesin 100 MG/5 ML UCUP PO PRN (16:53)
[2021-08-21] MEDS ORDERED: ASPIRIN 81 MG CHEWABLE TABLET ONE (17:22)
[2021-08-21] MEDS ORDERED: MORPHINE 4 MG/ML SYR IV PRN (17:23)
[2021-08-21 17:42] LABS: SARS-COV-2 RT PCR NEGATIVE (NEGATIVE)
[2021-08-21] MEDS: ENOXAPARIN 40 MG/0.4 ML SQ SCH (18:00)
[2021-08-21] MEDS: CEFTRIAXONE 1,000 MG in NA CHLORIDE 0.9% 50 ML IVPB SCH (18:00)
[2021-08-21] MEDS ORDERED: CEFTRIAXONE 1000 MG/VIAL ONE (18:16)
[2021-08-21] MEDS ORDERED: ENOXAPARIN 40 MG/0.4 ML SQ ONE (18:16)
[2021-08-21] MEDS ORDERED: NA CHLORIDE 0.9% 50 ML ONE (18:17)
[2021-08-21] MEDS: INSULIN -REGULAR HUMAN 50 UNIT/0.5 ML ML SQ SCH (21:00)
[2021-08-21 22:45] VITALS: BMI 25.4
[2021-08-21] MEDS: COLCHICINE 0.6 MG TAB PO SCH (23:29)
[2021-08-22 01:30] LABS: CKMB Creatine Kinase MB 1.2 ng/mL (1.0-3.6)
[2021-08-22 04:01] LABS: Absolute Lymphocytes (CBC) 7.2 K/uL (0.7-4.9); Hematocrit 41.4 % (39.6-49.0); Lymphocytes % 54.6 % (15.3-44.8); MPV 8.8 fL (7.6-11.3); RBC Red Blood Cell Count 4.66 M/uL (4.33-5.43)
[2021-08-22 04:20] LABS: ALT/SGPT 19 U/L (12-78); AST/SGOT 10 U/L (15-37); Albumin 3.2 g/dL (3.4-5.0); Alkaline Phosphatase 87 U/L (45-117); BUN Blood Urea Nitrogen 17 mg/dL (7-18); Bicarbonate 28 mmol/L (21-32); Bilirubin Total 0.3 mg/dL (0.2-1.0); Glucose Level 127 mg/dL (74-106); Protein, Total 6.9 g/dL (6.4-8.2); Sodium Level 138 mmol/L (136-145)
[2021-08-22] MEDS: INSULIN -REGULAR HUMAN 50 UNIT/0.5 ML ML SQ SCH ×2 (07:30→12:46)
[2021-08-22] MEDS: ENOXAPARIN 40 MG/0.4 ML SQ SCH (08:01)
[2021-08-22] MEDS: CEFTRIAXONE 1,000 MG in NA CHLORIDE 0.9% 50 ML IVPB SCH (08:01)
[2021-08-22] MEDS: COLCHICINE 0.6 MG TAB PO SCH (08:01)
[2021-08-22 09:00] VITALS: O2SAT 97
[2021-08-22] MEDS ORDERED: ZINC SULFATE 220 MG CAP PO SCH (09:00)
--- NOTE | 2021-08-22 09:11 | EKG ---
Test Date: 2021-08-21 Test Time: 13:57:24 Fabric Pattern Grader: WILEY MEASUREMENT RESULTS: Intervals: Rate: 111 IN: 164 QRSD: 82 QT: 316 QTc: 429 [place]: P: 70 IN: 164 QRS: 75 T: 48 INTERPRETIVE STATEMENTS: Sinus tachycardia Otherwise normal ECG No previous ECG available for comparison Electronically Signed On 08-22-21 09:09:17 MIXING SUPERVISOR by Steve Villarreal
[2021-08-22 09:28] LABS: CKMB Creatine Kinase MB 1.1 ng/mL (1.0-3.6)
[2021-08-22 12:12] VITALS: BP 129/76; TEMP 98.4
--- NOTE | 2021-08-22 13:42 | P.DS ---
Admission Date: 08/21/21 Discharge Date: 08/22/21 Disposition: ROUTINE DISCHARGE Discharge Condition: FAIR Reason for Admission: Substernal chest pain Brief History of Present Illness: 71-year-old male with past medical history of hypertension, diabetes mellitus type 2, hyperlipidemia, no previous cardiac history presented because of substernal chest pain radiating to the right side since the last 3 days. Pain is intermittent, no associated palpitation, no prior history of heart burn. On arrival in the ED, vitals were stable, EKG was unremarkable with normal sinus rhythm and no EKG changes. Chest x-ray shows no acute infiltrate. CT shows no evidence of PE but small right-sided pleural effusion. Patient admits to intermittent lower extremity swelling. He denies any exertional dyspnea or paroxysmal nocturnal dyspnea. patient received 2 doses of COVID vaccine. proBNP was normal at 22. He has been admitted for rule out acute coronary syndrome. Hospital Course: 71-year-old male with past medical history of hypertension admitted for right chest wall pain pleuritic in nature. Patient has had 3 doses of Covid vaccine. He denies any fever or chills. On presentation he had mild leukocytosis with WBC of [address] scan of the chest with PE protocol shows no evidence of PE but small right-sided pleural effusion. Patient was ruled out with negative cardiac enzymes. Abdominal sonogram shows no gallbladder stone. Patient was managed for empirical pleurisy presumed due to Covid vaccine. His symptoms is somewhat better. He will be discharged home with oral medication for the next 5 to 7 days. Given mild leukocytosis although absence of pneumonic infiltrate on CT scan as well as chest x-ray but patient was empirically started on antibiotics for possible occult pneumonia. Significant imaging studyEXAM DESCRIPTION: CT - Chest For Pe Angio - 08/21/2021 3:02 pm CLINICAL HISTORY: Chest pain COMPARISON: None. TECHNIQUE: Dynamically enhanced axial 3 mm thick images of the chest were obtained during administration of <100> mL Isovue 370 IV contrast. Coronal and oblique reconstruction images were generated and reviewed. Exam utilizes a protocol for optimal evaluation of pulmonary arterial tree. Maximum intensity projections 3D imaging was utilized All CT scans are performed using dose optimization technique as appropriate and may include automated exposure control or mA/KV adjustment according to patient size. FINDINGS: A pulmonary embolus is not seen. A thoracic aortic aneurysm is not noted. Small right pleural effusion. Mild right lower lobe atelectasis. A pericardial effusion is not seen. Paraseptal emphysema. The largest bleb measures 7 centimeters within left lung. IMPRESSION: Negative for a pulmonary embolism Vital Signs/Physical Exam: Temp Pulse Resp BP Pulse Ox 98.4 F 85 18 129/76 98 08/22/21 12:00 08/22/21 12:00 08/22/21 12:00 08/22/21 12:00 08/22/21 12:00 General: Alert, In no apparent distress, Oriented x3 HEENT: Atraumatic, Normocephalic, PERRLA Neck: Supple, 2+ carotid pulse no bruit, JVD not distended Respiratory: Clear to auscultation bilaterally, Normal air movement, Other (mild right rib margin tenderness) Cardiovascular: No edema, Normal pulses, Normal S1 S2 Gastrointestinal: Normal bowel sounds, Soft and benign, Non-distended, No ascites Musculoskeletal: No clubbing, No swelling Integumentary: No rashes, No breakdown, No significant lesion Neurological: Normal gait, Normal speech, Normal strength at 5/5 x4 extr, Normal tone, Cranial nerves 3-12 intact Laboratory Data at Discharge: WBC 13.10 K/uL (4.3-10.9) H 08/22/21 03:34 Hgb 13.4 g/dL (13.6-17.9) L 08/22/21 03:34 Hct 41.4 % (39.6-49.0) 08/22/21 03:34 Plt Count 304 K/uL (152-406) 08/22/21 03:34 PT 12.7 SECONDS (9.5-12.5) H 08/21/21 14:45 INR 1.10 08/21/21 14:45 Sodium 138 mmol/L (136-145) 08/22/21 03:34 Potassium 4.0 mmol/L (3.5-5.1) 08/22/21 03:34 BUN 17 mg/dL (7-18) 08/22/21 03:34 Creatinine 0.89 mg/dL (0.55-1.3) 08/22/21 03:34 Glucose 127 mg/dL (74-106) H 08/22/21 03:34 Magnesium 2.4 mg/dL (1.8-2.4) 08/21/21 14:45 Total Bilirubin 0.3 mg/dL (0.2-1.0) 08/22/21 03:34 AST 10 U/L (15-37) L 08/22/21 03:34 ALT 19 U/L (12-78) 08/22/21 03:34 Alkaline Phosphatase 87 U/L (45-117) 08/22/21 03:34 Home Medications: Aspirin [Aspirin EC 81 MG] 81 mg PO DAILY 08/21/21 Atorvastatin Calcium [Lipitor*] 10 mg PO BEDTIME 08/21/21 Cholecalciferol (Vitamin D3) [Vitamin D3] 3,000 unit PO DAILY 08/21/21 Enalapril Maleate 20 mg PO BID 08/21/21 Glimepiride 4 mg PO BID 08/21/21 Metformin HCl 1,000 mg PO DAILY 08/21/21 Pioglitazone [Actos*] 30 mg PO DAILY 08/21/21 Propranolol [Inderal*] 20 mg PO DAILY 08/21/21 Amox/Clavulanate [Augmentin 875-125 Tab] 875 mg PO BID #10 tab 08/22/21 Colchicine [Colcrys *] 0.6 mg PO BID #10 tab 08/22/21 Guaifenesin/Dextromethorphan [Guaifenesin-Dm ER 1,200-60 mg] 1 each PO BID #10 tab.er.12h 08/22/21 Naproxen/Esomeprazole Mag [Naproxen-Esomepraz Dr 500-20Mg] 1 each PO BID 10 Days #20 tab.ir. 08/22/21 New Medications: Amox/Clavulanate [Augmentin 875-125 Tab] 875 mg PO BID #10 tab Colchicine [Colcrys *] 0.6 mg PO BID #10 tab Guaifenesin/Dextromethorphan [Guaifenesin-Dm ER 1,200-60 mg] 1 each PO BID #10 tab.er.12h Naproxen/Esomeprazole Mag [Naproxen-Esomepraz Dr 500-20Mg] 1 each PO BID 10 Days #20 tab.ir. Diet: ADA Activity: Ad lucas Followup: Dilma Mckinney, DO [Primary Care Provider] - 1 Week Time spent managing pt's care (in minutes): 35
== END 2021-08-22 14:45 | disposition home or self-care (01) ==
LOC: ER 13:31 → ERHOLD 16:52 → 4TH 21:57
PROVIDERS: ADMIT Internal Medicine; ATTEND Internal Medicine
DX: R07.89 Other chest pain (principal); J90 Pleural effusion, not elsewhere classified; I10 Essential (primary) hypertension; E11.9 Type 2 diabetes mellitus without complications; E78.5 Hyperlipidemia, unspecified; Z20.822 Contact with and (suspected) exposure to COVID-19
CPT/HCPCS: 0240U; 36415; 71045; 71275; 76705; 80048; 80053; 80076; 82550; 82553; 82565; 82947; 83735; 83880; 84484; 85025; 85610; 93005; 96374; 96375; 99285; G0378; J1650; J2270; J2405; Q9967

== ENCOUNTER 2022-06-22 09:33 | Emergency (ER) | payer MEDICARE ==
--- OUTSIDE RECORDS SUMMARY | 2022-06-22 09:42 | XMS REPORT | Continuity of Care Document ---
:[address] [facility] Address [address] [place] [address] Care Team Providers Name Role Phone Dilma Mckinney Primary Care Physician Dilma Mckinney Attending Clinician Unavailable BLAINE FLYNN Attending Clinician Unavailable Ye Escalona Attending Clinician Mariano Attending Clinician Unavailable Otilio_Ayah Attending Clinician Unavailable KIM ARIAS Attending Clinician Unavailable Alban Prescott Attending Clinician Unavailable Bhanu Askew MD Attending Clinician Doctor Unassigned, Arnold Attending Clinician Unavailable Thomas_Ayah Admitting Clinician Unavailable Delchay_T Admitting Clinician Unavailable Payers Payer Name Policy Type Policy Number Effective Date Expiration Date S daphnie [employer] MEDICARE [id number] 2019 ADVANTAGE HMO 00:00:00 FORMERLY [facility] [id number] (MEDICARE 00:00:00 REPLACEMENT HMO) [employer] MEDICARE 53 [id number] 2019 Common 00:00:00 [facility] MEDICARE ZACITAS ARCADIO [id number] [facility] MEDICARE NOVITAS MB [id number] [facility] MEDICARE NOVITAS MB [id number] Common [facility] HUMANA MEDICARE C1 [id number] 2019 Common 00:00:00 [facility] HU[employer]NA MEDICARE C1 [id number] 2019 Common 00:00:00 [facility] HU[employer] MEDICARE C1 [id number] 2019 Common 00:00:00 [facility] HUMAN MEDICARE C1 [id number] 2019 Common 00:00:00 [facility] WELLCARE ISH [id number] 2018 PLUS 00:00:00 CLASSIC/VALUE Problems Condition Condition Condition Status Onset Resolution Last Treating Co mments Source Name Details Category Date Date Treatment Clinician Date 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 [place] venous venous 06-24 Health insufficie insufficie 00:00: ncy ncy 00 Varicose Varicose Disease Active 2020-06 ND veins of veins of 0-27 Health both lower both lower 00:00: extremitie extremitie 00 s with s with inflammati inflammati on on No known No known Disease Unive rs active active ity of problems problems [facility] [id number] Other Problem Common chronic [facility] pain [facility] [id number] Uncontroll Problem Co mmon ed type 2 [facility] diabetes - [facility]I mellitus [facility] complicati Medica l on, Center without long-term current use of insulin Diabetes Diabetes Problem Commo n mellitus [facility] without - [facility]I complicati [facility] Essential Benign Problem Common hypertensi essential Spi rit on HTN [facility] [id number] Kel[place] of Problem Comm on skin [facility] Pure Pure Problem Common hyperchole hyperchole Sp abi sterolemia sterolemia [facility] [id number] Tremor Problem Common [facility] Hypercalce Hypercalce Problem C [facility] Asbestosis Asbestosis Problem C [facility] Impotence Erectile Problem Comm on of organic dysfunctio Sp abi origin n, - [facility]I unspecifie [facility] dysfunctio Medica l n type Center Osteoarthr Osteoarthr Problem C ommon itis itis [facility] [id number] Anemia, Problem Commo n unspecifie Spirit d type - [facility] [id number] Elevated Problem Commo n lymphocyte Spirit s - [facility] Iron Iron Problem Common deficiency deficiency Sp abi anemia due anemia due - CHI to dietary to dietary [facility] Iron Iron Problem Common deficiency deficiency Sp abi anemia anemia, - CHI unspecifie St d iron [facility] deficiency Medica l anemia Center type Allergies, Adverse Reactions, Alerts Allergy Allergy Status Severity Reaction(s) Onset Inactive Treating Comm ents Source Name Type Date Date Clinician No Known DA Active U 2019-06 [facility] 2 Allergie 00:00: s 00 No Known DA Active U 2019-06 [facility] 07-16 Allergie 00:00: s 00 NO KNOWN Drug Active Univers ALLERGIE Class ity of S [facility] Social History Social Habit Start Date Stop Date Quantity Comments Source Alcohol intake [facility] History of [facility] - Tobacco Use [facility] Sex Assigned At Common Sp abi - [facility] Tobacco use and 2021-04-11 2021-04-11 Smokeless tobacco [facility] exposure 00:00:00 00:00:00 non-user Alcohol Comment 2018-12-30 2018-12-30 socially Universit y of 00:00:00 00:00:00 [facility] Smoking Status Start Date Stop Date Source Former Smoker 2022-03-16 00:00:00 2022-03-16 00:00:00 [facility] pirit [facility] Never Smoker [facility] Medications Ordered Filled Start Stop Current Ordering [...] tablet 00:00: 00 multivitami Yes Take by Uni vers n with 12-30 mouth. ity of minerals 21:25: [place] (ONE-A-DAY 09 Medical 50 PLUS Branch ORAL) Cholecalcif Yes Take by [employer] vers vinay, 12-30 mouth. ity of Vitamin D3, 21:25: [place] 3,000 unit 09 Medical Tab Branch vit B Yes Take by Univers complex 12-30 mouth. ity of no.12/niaci 21:25: [place] n,B3, 09 Medical (VITAMIN B Branch COMPLEX NO.12-NIACI N ORAL) omega-3 Yes Take by [employer] fatty 12-30 mouth. ity of acids/dha/e 21:25: [place] (MEGARED 09 Medical PLANT-OMEGA Branch -3 ORAL) multivitami 2019-0 Yes Take by Uni vers n with 7- mouth. ity of minerals 21:25: [place] (ONE-A-DAY 09 Medical 50 PLUS Branch ORAL) Cholecalcif 2019-0 Yes Take by Uni vers vinay, 7- mouth. ity of Vitamin D3, 21:25: [place] 3,000 unit 09 Medical Tab Branch vit B 2019-0 Yes Take by Univers complex 7- mouth. ity of no.12/niaci 21:25: [place] n,B3, 09 Medical (VITAMIN B Branch COMPLEX NO.12-NIACI N ORAL) omega-3 2019-0 Yes Take by Univers fatty 12-30 mouth. ity of acids/dha/e 21:25: [place] (MEGARED 09 Medical PLANT-OMEGA Branch -3 ORAL) multivitami 2018-0 Yes Take by Uni vers n with 7- mouth. ity of minerals 21:25: [place] (ONE-A-DAY 09 Medical 50 PLUS Branch ORAL) Cholecalcif 2019-0 Yes Take by Uni vers vinay, 7- mouth. ity of Vitamin D3, 21:25: [place] 3,000 unit 09 Medical Tab Branch vit B 2019-0 Yes Take by Univers complex 7 mouth. ity of no.12/niaci 21:25: [place] n,B3, 09 Medical (VITAMIN B Branch COMPLEX NO.12-NIACI N ORAL) omega-3 2019-0 Yes Take by Univers fatty 12-30 mouth. ity of acids/dha/e 21:25: [place] pa (MEGARED 09 Medical PLANT-OMEGA Branch -3 ORAL) multivitami 2019-0 Yes Take by Uni vers n with 7-09 mouth. ity of minerals 21:25: [place] (ONE-A-DAY 09 Medical 50 PLUS Branch ORAL) Cholecalcif 2019-0 Yes Take by Uni vers vinay, 7- mouth. ity of Vitamin D3, 21:25: [place] 3,000 unit 09 Medical Tab Branch vit B 2019-0 Yes Take by Univers complex 7- mouth. ity of no.12/niaci 21:25: [place] n,B3, 09 Medical (VITAMIN B Branch COMPLEX NO.12-NIACI N ORAL) omega-3 2019-0 Yes Take by Univers fatty 12-30 mouth. ity of acids/dha/e 21:25: [place] (MEGARED 09 Medical PLANT-OMEGA Branch -3 ORAL) aspirin Yes Take by Univers (ASPIR-81 7-09 mouth. ity of ORAL) 21:08: [address] aspirin Yes Take by Univers (ASPIR-81 7-09 mouth. ity of ORAL) 21:08: [address] aspirin Yes Take by Univers (ASPIR-81 7-09 mouth. ity of ORAL) 21:08: [address] aspirin Yes Take by Univers (ASPIR-81 7-09 mouth. ity of ORAL) 21:08: [address] Branch atorvastati Yes TAKE 1 Univ [...] BY ity of tablet 00:00: MOUTH ONCE [place] DAILY FOR Medical 90 DAYS Branch propranolol 2018- Yes Univer s 20 mg 5-07 ity of tablet 00:00: 00 Medical Branch propranolol 2019-0 Yes Univer s 20 mg 5-07 ity of tablet 00:00: Medical Branch propranolol 2019-0 Yes Univer s 20 mg 5-07 ity of tablet 00:00: 00 Medical Branch propranolol 2018-0 Yes Univer s 20 mg 5-07 ity of tablet 00:00: 00 Medical Branch enalapril Yes Univers (VASOTEC) 8-15 ity of 20 mg 00:00: [place] tablet 00 Medical Branch glimepiride Yes Univer s (AMARYL) 4 8-15 ity of mg tablet 00:00: 00 Medical Branch metFORMIN Yes Univers (GLUCOPHAGE 8-15 ity of ) 1,000 mg 00:00: [place] tablet 00 Medical Branch enalapril Yes Univers (VASOTEC) 8-15 ity of 20 mg 00:00: [place] tablet 00 [facility] glimepiride Yes Univer s (AMARYL) 4 8-15 ity of mg tablet 00:00: [place] 00 [facility] metFORMIN Yes Univers (GLUCOPHAGE 8-15 ity of ) 1,000 mg 00:00: [place] tablet 00 [facility] enalapril Yes Univers (VASOTEC) 8-15 ity of 20 mg 00:00: [place] tablet 00 [facility] glimepiride Yes Univer s (AMARYL) 4 8-15 ity of mg tablet 00:00: [place] [facility] metFORMIN Yes Univers (GLUCOPHAGE 8-15 ity of ) 1,000 mg 00:00: [place] tablet 00 [facility] enalapril Yes Univers (VASOTEC) 8-15 ity of 20 mg 00:00: [place] tablet [facility] glimepiride Yes Univer s (AMARYL) 4 8-15 ity of mg tablet 00:00: [place] [facility] metFORMIN Yes Univers (GLUCOPHAGE 8-15 ity of ) 1,000 mg 00:00: [place] tablet 00 [facility] Propranolol Propranolol Yes Na Mckinney 1 tablet Common HCl HCl [facility] Metformin Metformin Yes Na Mckinney 1 tablet Common HCl HCl with meals [facility] Tamsulosin Tamsulosin Yes Na Mckinney 1 capsule Common HCl HCl [facility] Glyxambi Glyxambi Yes Na Mckinney 1 Comm on [facility] Pioglitazon Pioglitazon Yes Na Mckinney 1 tablet Common e HCl e HCl [facility] Enalapril Enalapril Yes Na Mckinney 1 tablet Common Maleate Maleate [facility] Glimepiride Glimepiride Yes Na Mckinney 1 tablet Common with Spirit breakfast - CHI or the [facility] meal of Medical the day [place] Myrbetriq Myrbetriq Yes Na Mckinney 1 tablet Common [facility] Amaryl Amaryl Yes Na Mckinney 1 tablet Comm on with food [facility] Gabapentin Gabapentin Yes Na Mckinney 1 capsule Common [facility] Finasteride Finasteride Yes Na Mckinney 1 tablet Common [facility] Gabapentin Gabapentin Yes Na Mckinney 1 capsule [facility] Atorvastati Atorvastati Yes Na Mckinney 1 tablet Common n Calcium n Calcium Spiri [facility] SMZ-TMP DS SMZ-TMP DS Yes Na Mckinney not Common defined [facility] Potassium Potassium No 1{table Potassium Chloride ER Chloride ER t_with_ Chloride 20 MEQ 20 MEQ food} ER 20 MEQ SMZ-TMP DS SMZ-TMP DS No SMZ-TMP DS Oxybutynin Oxybutynin No 1{table QD Oxybutynin Chloride 5 Chloride 5 t} Chloride 5 MG MG MG Myrbetriq Myrbetriq No 1{table BID Myrbetriq 25 MG 25 MG t} 25 MG Furosemide Furosemide No 1{table Furosemide 40 MG 40 MG t} 40 MG Amaryl 4 MG Amaryl 4 MG No 1{table BID Amaryl 4 t_with_ MG food} Potassium Potassium No 1{table Potassium Chloride ER Chloride ER t_with_ Chloride 20 MEQ 20 MEQ food} ER 20 MEQ Tamsulosin Tamsulosin No 1{capsu QD Tamsulosin HCl 0.4 MG HCl 0.4 MG le} HCl 0.4 MG Pioglitazon Pioglitazon No 1{table QD Pioglitazo e HCl 30 MG e HCl 30 MG t} ne HCl 30 MG Glyxambi Glyxambi No Glyxambi 25-5 MG 25-5 MG 25-5 MG Glyxambi Glyxambi No Glyxambi 25mg/5mg 25mg/5mg 25mg/5mg Aspirin 81 Aspirin 81 No 1{table QD Aspirin 81 81 MG 81 MG t} 81 MG Oxybutynin Oxybutynin No 1{table QD Oxybutynin Chloride 5 Chloride 5 t} Chloride 5 MG MG MG Glimepiride Glimepiride No 1{table QD Glimepirid 4 MG 4 MG t_with_ e [address]_or_t he_firs t_main_ meal_of _the_da y} Myrbetriq Myrbetriq No 1{table BID Myrbetriq 25 MG 25 MG t} 25 MG Enalapril Enalapril No 1{table BID Enalapril Maleate 20 Maleate 20 t} Maleate 20 MG MG MG Propranolol Propranolol No 1{table BID Propranolo HCl 20 MG HCl 20 MG t} l HCl 20 MG Finasteride Finasteride No 1{table QD Finasterid 5 MG 5 MG t} e 5 MG Propranolol Propranolol No 1{table QD Propranolo HCl 20 MG HCl 20 MG t} l HCl 20 MG Gabapentin Gabapentin No 1{capsu Gabapentin 300 MG 300 MG le} 300 MG metFORMIN metFORMIN No 1{table BID metFORMIN HCl 1000 MG HCl 1000 MG t_with_ HCl 1000 meals} MG SMZ-TMP DS SMZ-TMP DS No SMZ-TMP DS Gabapentin Gabapentin No 1{capsu Gabapentin 300 MG 300 MG le} 300 MG Atorvastati Atorvastati No 1{table QD Atorvastat n Calcium n Calcium t} in Calcium 10 MG 10 MG 10 MG Enalapril Enalapril No 1{table BID Enalapril Maleate 20 Maleate 20 t} Maleate 20 MG MG MG Glyxambi Glyxambi No Glyxambi 25mg/5mg 25mg/5mg 25mg/5mg Amaryl 4 MG Amaryl 4 MG No 1{table BID Amaryl 4 t_with_ MG food} Gabapentin Gabapentin No 1{capsu Gabapentin 300 MG 300 MG le} 300 MG Tamsulosin Tamsulosin No 1{capsu QD Tamsulosin HCl 0.4 MG HCl 0.4 MG le} HCl 0.4 MG Gabapentin Gabapentin No 1{capsu Gabapentin 300 MG 300 MG le} 300 MG Atorvastati Atorvastati No 1{table QD Atorvastat n Calcium n Calcium t} in Calcium 10 MG 10 MG 10 MG Aspirin 81 Aspirin 81 No 1{table QD Aspirin 81 81 MG 81 MG t} 81 MG Furosemide Furosemide No 1{table Furosemide 40 MG 40 MG t} 40 MG Glimepiride Glimepiride No 1{table QD Glimepirid 4 MG 4 MG t_with_ e [address]_or_t he_firs t_main_ meal_of _the_da y} Propranolol Propranolol No 1{table BID Propranolo HCl 20 MG HCl 20 MG t} l HCl 20 MG metFORMIN metFORMIN No 1{table BID metFORMIN HCl 1000 MG HCl 1000 MG t_with_ HCl 1000 meals} MG Pioglitazon Pioglitazon No 1{table QD Pioglitazo e HCl 30 MG e HCl 30 MG t} ne HCl 30 MG Glyxambi Glyxambi No Glyxambi 25-5 MG 25-5 MG 25-5 MG SMZ-TMP DS SMZ-TMP DS No SMZ-TMP DS Propranolol Propranolol No 1{table QD Propranolo HCl 20 MG HCl 20 MG t} l HCl 20 MG Oxybutynin Oxybutynin No 1{table QD Oxybutynin Chloride 5 Chloride 5 t} Chloride 5 MG MG MG Finasteride Finasteride No 1{table QD Finasterid 5 MG 5 MG t} e 5 MG Trulicity Trulicity No Trulicity 0.75 0.75 0.75 MG/0.5ML MG/0.5ML MG/0.5ML Potassium Potassium No 1{table Potassium Chloride ER Chloride ER t_with_ Chloride 20 MEQ 20 MEQ food} ER 20 MEQ Myrbetriq Myrbetriq No 1{table BID Myrbetriq 25 MG 25 MG t} 25 MG Enalapril Enalapril No 1{table BID Enalapril Maleate 20 Maleate 20 t} Maleate 20 MG MG MG Glyxambi Glyxambi No Glyxambi 25mg/5mg 25mg/5mg 25mg/5mg Amaryl 4 MG Amaryl 4 MG No 1{table BID Amaryl 4 t_with_ MG food} Gabapentin Gabapentin No 1{capsu Gabapentin 300 MG 300 MG le} 300 MG Tamsulosin Tamsulosin No 1{capsu QD Tamsulosin HCl 0.4 MG HCl 0.4 MG le} HCl 0.4 MG Gabapentin Gabapentin No 1{capsu Gabapentin 300 MG 300 MG le} 300 MG Atorvastati Atorvastati No 1{table QD Atorvastat n Calcium n Calcium t} in Calcium 10 MG 10 MG 10 MG Aspirin 81 Aspirin 81 No 1{table QD Aspirin 81 81 MG 81 MG t} 81 MG Furosemide Furosemide No 1{table Furosemide 40 MG 40 MG t} 40 MG Glimepiride Glimepiride No 1{table QD Glimepirid 4 MG 4 MG t_with_ e [address]_or_t he_firs t_main_ meal_of _the_da y} Propranolol Propranolol No 1{table BID Propranolo HCl 20 MG HCl 20 MG t} l HCl 20 MG metFORMIN metFORMIN No 1{table BID metFORMIN HCl 1000 MG HCl 1000 MG t_with_ HCl 1000 meals} MG Pioglitazon Pioglitazon No 1{table QD Pioglitazo e HCl 30 MG e HCl 30 MG t} ne HCl 30 MG Glyxambi Glyxambi No Glyxambi 25-5 MG 25-5 MG 25-5 MG SMZ-TMP DS SMZ-TMP DS No SMZ-TMP DS Propranolol Propranolol No 1{table QD Propranolo HCl 20 MG HCl 20 MG t} l HCl 20 MG Oxybutynin Oxybutynin No 1{table QD Oxybutynin Chloride 5 Chloride 5 t} Chloride 5 MG MG MG Finasteride Finasteride No 1{table QD Finasterid 5 MG 5 MG t} e 5 MG Trulicity Trulicity No Trulicity 0.75 0.75 0.75 MG/0.5ML MG/0.5ML MG/0.5ML Potassium Potassium No 1{table Potassium Chloride ER Chloride ER t_with_ Chloride 20 MEQ 20 MEQ food} ER 20 MEQ Myrbetriq Myrbetriq No 1{table BID Myrbetriq 25 MG 25 MG t} 25 MG Gabapentin Gabapentin No 1{capsu Gabapentin 300 MG 300 MG le} 300 MG Glyxambi Glyxambi No Glyxambi 25mg/5mg 25mg/5mg 25mg/5mg Finasteride Finasteride No 1{table QD Finasterid 5 MG 5 MG t} e 5 MG Aspirin 81 Aspirin 81 No 1{table QD Aspirin 81 81 MG 81 MG t} 81 MG Amaryl 4 MG Amaryl 4 MG No 1{table BID Amaryl 4 t_with_ MG food} SMZ-TMP DS SMZ-TMP DS No SMZ-TMP DS metFORMIN metFORMIN No 1{table BID metFORMIN HCl 1000 MG HCl 1000 MG t_with_ HCl 1000 meals} MG Oxybutynin Oxybutynin No 1{table QD Oxybutynin Chloride 5 Chloride 5 t} Chloride 5 MG MG MG Enalapril Enalapril No 1{table BID Enalapril Maleate 20 Maleate 20 t} Maleate 20 MG MG MG Furosemide Furosemide No 1{table Furosemide 40 MG 40 MG t} 40 MG Trulicity Trulicity No Trulicity 0.75 0.75 0.75 MG/0.5ML MG/0.5ML MG/0.5ML Atorvastati Atorvastati No Atorvastat n Calcium n Calcium in Calcium 10 MG 10 MG 10 MG Glyxambi Glyxambi No Glyxambi 25-5 MG 25-5 MG 25-5 MG Pioglitazon Pioglitazon No 1{table QD Pioglitazo e HCl 30 MG e HCl 30 MG t} ne HCl 30 MG Myrbetriq Myrbetriq No 1{table BID Myrbetriq 25 MG 25 MG t} 25 MG Propranolol Propranolol No 1{table BID Propranolo HCl 20 MG HCl 20 MG t} l HCl 20 MG Gabapentin Gabapentin No 1{capsu Gabapentin 300 MG 300 MG le} 300 MG Tamsulosin Tamsulosin No 1{capsu QD Tamsulosin HCl 0.4 MG HCl 0.4 MG le} HCl 0.4 MG Potassium Potassium No 1{table Potassium Chloride ER Chloride ER t_with_ Chloride 20 MEQ 20 MEQ food} ER 20 MEQ Glimepiride Glimepiride No Glimepirid 4 MG 4 MG e 4 MG Propranolol Propranolol No 1{table QD Propranolo HCl 20 MG HCl 20 MG t} l HCl 20 MG Amaryl 4 MG Amaryl 4 MG No 1{table BID Amaryl 4 t_with_ MG food} Finasteride Finasteride No 1{table QD Finasterid 5 MG 5 MG t} e 5 MG Furosemide Furosemide No 1{table Furosemide 40 MG 40 MG t} 40 MG Atorvastati Atorvastati No Atorvastat n Calcium n Calcium in Calcium 10 MG 10 MG 10 MG Gabapentin Gabapentin No 1{capsu Gabapentin 300 MG 300 MG le} 300 MG Myrbetriq Myrbetriq No 1{table BID Myrbetriq 25 MG 25 MG t} 25 MG Potassium Potassium No 1{table Potassium Chloride ER Chloride ER t_with_ Chloride 20 MEQ 20 MEQ food} ER 20 MEQ Tamsulosin Tamsulosin No 1{capsu QD Tamsulosin HCl 0.4 MG HCl 0.4 MG le} HCl 0.4 MG Oxybutynin Oxybutynin No 1{table QD Oxybutynin Chloride 5 Chloride 5 t} Chloride 5 MG MG MG Propranolol Propranolol No 1{table BID Propranolo HCl 20 MG HCl 20 MG t} l HCl 20 MG Propranolol Propranolol No 1{table QD Propranolo HCl 20 MG HCl 20 MG t} l HCl 20 MG Glyxambi Glyxambi No Glyxambi 25mg/5mg 25mg/5mg 25mg/5mg Glimepiride Glimepiride No Glimepirid 4 MG 4 MG e 4 MG Gabapentin Gabapentin No 1{capsu Gabapentin 300 MG 300 MG le} 300 MG Enalapril Enalapril No 1{table BID Enalapril Maleate 20 Maleate 20 t} Maleate 20 MG MG MG Trulicity Trulicity No Trulicity 0.75 0.75 0.75 MG/0.5ML MG/0.5ML MG/0.5ML Pioglitazon Pioglitazon No 1{table QD Pioglitazo e HCl 30 MG e HCl 30 MG t} ne HCl 30 MG Glyxambi Glyxambi No Glyxambi 25-5 MG 25-5 MG 25-5 MG Aspirin 81 Aspirin 81 No 1{table QD Aspirin 81 81 MG 81 MG t} 81 MG SMZ-TMP DS SMZ-TMP DS No SMZ-TMP DS metFORMIN metFORMIN No 1{table BID metFORMIN HCl 1000 MG HCl 1000 MG t_with_ HCl 1000 meals} MG Amaryl 4 MG Amaryl 4 MG No 1{table BID Amaryl 4 t_with_ MG food} Finasteride Finasteride No 1{table QD Finasterid 5 MG 5 MG t} e 5 MG Furosemide Furosemide No 1{table Furosemide 40 MG 40 MG t} 40 MG Atorvastati Atorvastati No Atorvastat n Calcium n Calcium in Calcium 10 MG 10 MG 10 MG Gabapentin Gabapentin No 1{capsu Gabapentin 300 MG 300 MG le} 300 MG Myrbetriq Myrbetriq No 1{table BID Myrbetriq 25 MG 25 MG t} 25 MG Potassium Potassium No 1{table Potassium Chloride ER Chloride ER t_with_ Chloride 20 MEQ 20 MEQ food} ER 20 MEQ Tamsulosin Tamsulosin No 1{capsu QD Tamsulosin HCl 0.4 MG HCl 0.4 MG le} HCl 0.4 MG Oxybutynin Oxybutynin No 1{table QD Oxybutynin Chloride 5 Chloride 5 t} Chloride 5 MG MG MG Propranolol Propranolol No 1{table BID Propranolo HCl 20 MG HCl 20 MG t} l HCl 20 MG Propranolol Propranolol No 1{table QD Propranolo HCl 20 MG HCl 20 MG t} l HCl 20 MG Glyxambi Glyxambi No Glyxambi 25mg/5mg 25mg/5mg 25mg/5mg Glimepiride Glimepiride No Glimepirid 4 MG 4 MG e 4 MG Gabapentin Gabapentin No 1{capsu Gabapentin 300 MG 300 MG le} 300 MG Enalapril Enalapril No 1{table BID Enalapril Maleate 20 Maleate 20 t} Maleate 20 MG MG MG Trulicity Trulicity No Trulicity 0.75 0.75 0.75 MG/0.5ML MG/0.5ML MG/0.5ML Pioglitazon Pioglitazon No 1{table QD Pioglitazo e HCl 30 MG e HCl 30 MG t} ne HCl 30 MG Glyxambi Glyxambi No Glyxambi 25-5 MG 25-5 MG 25-5 MG Aspirin 81 Aspirin 81 No 1{table QD Aspirin 81 81 MG 81 MG t} 81 MG SMZ-TMP DS SMZ-TMP DS No SMZ-TMP DS metFORMIN metFORMIN No 1{table BID metFORMIN HCl 1000 MG HCl 1000 MG t_with_ HCl 1000 meals} MG Finasteride Finasteride No 1{table QD Finasterid 5 MG 5 MG t} e 5 MG metFORMIN metFORMIN No 1{table BID metFORMIN HCl 1000 MG HCl 1000 MG t_with_ HCl 1000 meals} MG Gabapentin Gabapentin No 1{capsu Gabapentin 300 MG 300 MG le} 300 MG Trulicity Trulicity No Trulicity 0.75 0.75 0.75 MG/0.5ML MG/0.5ML MG/0.5ML Amaryl 4 MG Amaryl 4 MG No 1{table BID Amaryl 4 t_with_ MG food} Oxybutynin Oxybutynin No 1{table QD Oxybutynin Chloride 5 Chloride 5 t} Chloride 5 MG MG MG Furosemide Furosemide No 1{table Furosemide 40 MG 40 MG t} 40 MG Enalapril Enalapril No 1{table BID Enalapril Maleate 20 Maleate 20 t} Maleate 20 MG MG MG Tamsulosin Tamsulosin No 1{capsu QD Tamsulosin HCl 0.4 MG HCl 0.4 MG le} HCl 0.4 MG Propranolol Propranolol No 1{table BID Propranolo HCl 20 MG HCl 20 MG t} l HCl 20 MG Glyxambi Glyxambi No Glyxambi 25mg/5mg 25mg/5mg 25mg/5mg Atorvastati Atorvastati No Atorvastat n Calcium n Calcium in Calcium 10 MG 10 MG 10 MG Myrbetriq Myrbetriq No 1{table BID Myrbetriq 25 MG 25 MG t} 25 MG Pioglitazon Pioglitazon No 1{table QD Pioglitazo e HCl 30 MG e HCl 30 MG t} ne HCl 30 MG Glyxambi Glyxambi No Glyxambi 25-5 MG 25-5 MG 25-5 MG SMZ-TMP DS SMZ-TMP DS No SMZ-TMP DS Propranolol Propranolol No 1{table QD Propranolo HCl 20 MG HCl 20 MG t} l HCl 20 MG Potassium Potassium No 1{table Potassium Chloride ER Chloride ER t_with_ Chloride 20 MEQ 20 MEQ food} ER 20 MEQ Aspirin 81 Aspirin 81 No 1{table QD Aspirin 81 81 MG 81 MG t} 81 MG Glimepiride Glimepiride No Glimepirid 4 MG 4 MG e 4 MG Gabapentin Gabapentin No 1{capsu Gabapentin 300 MG 300 MG le} 300 MG Finasteride Finasteride No 1{table QD Finasterid 5 MG 5 MG t} e 5 MG metFORMIN metFORMIN No 1{table BID metFORMIN HCl 1000 MG HCl 1000 MG t_with_ HCl 1000 meals} MG Gabapentin Gabapentin No 1{capsu Gabapentin 300 MG 300 MG le} 300 MG SMZ-TMP DS SMZ-TMP DS No SMZ-TMP DS Amaryl 4 MG Amaryl 4 MG No 1{table BID Amaryl 4 t_with_ MG food} Tamsulosin Tamsulosin No 1{capsu QD Tamsulosin HCl 0.4 MG HCl 0.4 MG le} HCl 0.4 MG Furosemide Furosemide No 1{table Furosemide 40 MG 40 MG t} 40 MG Enalapril Enalapril No 1{table BID Enalapril Maleate 20 Maleate 20 t} Maleate 20 MG MG MG Pioglitazon Pioglitazon No 1{table QD Pioglitazo e HCl 30 MG e HCl 30 MG t} ne HCl 30 MG Propranolol Propranolol No 1{table BID Propranolo HCl 20 MG HCl 20 MG t} l HCl 20 MG Atorvastati Atorvastati No Atorvastat n Calcium n Calcium in Calcium 10 MG 10 MG 10 MG Trulicity Trulicity No Trulicity 0.75 0.75 0.75 MG/0.5ML MG/0.5ML MG/0.5ML Oxybutynin Oxybutynin No 1{table QD Oxybutynin Chloride 5 Chloride 5 t} Chloride 5 MG MG MG Propranolol Propranolol No 1{table QD Propranolo HCl 20 MG HCl 20 MG t} l HCl 20 MG Glyxambi Glyxambi No Glyxambi 25-5 MG 25-5 MG 25-5 MG Glimepiride Glimepiride No Glimepirid 4 MG 4 MG e 4 MG Glyxambi Glyxambi No Glyxambi 25mg/5mg 25mg/5mg 25mg/5mg Potassium Potassium No 1{table Potassium Chloride ER Chloride ER t_with_ Chloride 20 MEQ 20 MEQ food} ER 20 MEQ Aspirin 81 Aspirin 81 No 1{table QD Aspirin 81 81 MG 81 MG t} 81 MG Myrbetriq Myrbetriq No 1{table BID Myrbetriq 25 MG 25 MG t} 25 MG Gabapentin Gabapentin No 1{capsu Gabapentin 300 MG 300 MG le} 300 MG Finasteride Finasteride No 1{table QD 5 MG 5 MG t} metFORMIN metFORMIN No 1{table BID HCl 1000 MG HCl 1000 MG t_with_ meals} Gabapentin Gabapentin No 1{capsu 300 MG 300 MG le} SMZ-TMP DS SMZ-TMP DS No Amaryl 4 MG Amaryl 4 MG No 1{table BID t_with_ food} Tamsulosin Tamsulosin No 1{capsu QD HCl 0.4 MG HCl 0.4 MG le} Furosemide Furosemide No 1{table 40 MG 40 MG t} Enalapril Enalapril No 1{table BID Maleate 20 Maleate 20 t} MG MG Pioglitazon Pioglitazon No 1{table QD e HCl 30 MG e HCl 30 MG t} Propranolol Propranolol No 1{table BID HCl 20 MG HCl 20 MG t} Atorvastati Atorvastati No n Calcium n Calcium 10 MG 10 MG Trulicity Trulicity No 0.75 0.75 MG/0.5ML MG/0.5ML Oxybutynin Oxybutynin No 1{table QD Chloride 5 Chloride 5 t} MG MG Propranolol Propranolol No 1{table QD HCl 20 MG HCl 20 MG t} Glyxambi Glyxambi No 25-5 MG 25-5 MG Glimepiride Glimepiride No 4 MG 4 MG Glyxambi Glyxambi No 25mg/5mg 25mg/5mg Potassium Potassium No 1{table Chloride ER Chloride ER t_with_ 20 MEQ 20 MEQ food} Aspirin 81 Aspirin 81 No 1{table QD 81 MG 81 MG t} Myrbetriq Myrbetriq No 1{table BID 25 MG 25 MG t} Gabapentin Gabapentin No 1{capsu 300 MG 300 MG le} Oxybutynin Oxybutynin No 1{table QD Oxybutynin Chloride 5 Chloride 5 t} Chloride 5 MG MG MG Potassium Potassium No 1{table Potassium Chloride ER Chloride ER t_with_ Chloride 20 MEQ 20 MEQ food} ER 20 MEQ Enalapril Enalapril No Enalapril Maleate 20 Maleate 20 Maleate 20 MG MG MG metFORMIN metFORMIN No 1{table BID metFORMIN HCl 1000 MG HCl 1000 MG t_with_ HCl 1000 meals} MG Propranolol Propranolol No 1{table BID Propranolo HCl 20 MG HCl 20 MG t} l HCl 20 MG Atorvastati Atorvastati No Atorvastat n Calcium n Calcium in Calcium 10 MG 10 MG 10 MG Glyxambi Glyxambi No Glyxambi 25-5 MG 25-5 MG 25-5 MG Glimepiride Glimepiride No Glimepirid 4 MG 4 MG e 4 MG Finasteride Finasteride No 1{table QD Finasterid 5 MG 5 MG t} e 5 MG Propranolol Propranolol No 1{table QD Propranolo HCl 20 MG HCl 20 MG t} l HCl 20 MG Pioglitazon Pioglitazon No 1{table QD Pioglitazo e HCl 30 MG e HCl 30 MG t} ne HCl 30 MG Tamsulosin Tamsulosin No 1{capsu QD Tamsulosin HCl 0.4 MG HCl 0.4 MG le} HCl 0.4 MG Gabapentin Gabapentin No 1{capsu Gabapentin 300 MG 300 MG le} 300 MG SMZ-TMP DS SMZ-TMP DS No SMZ-TMP DS Gabapentin Gabapentin No 1{capsu Gabapentin 300 MG 300 MG le} 300 MG Myrbetriq Myrbetriq No 1{table BID Myrbetriq 25 MG 25 MG t} 25 MG Furosemide Furosemide No 1{table Furosemide 40 MG 40 MG t} 40 MG Trulicity Trulicity No Trulicity 0.75 0.75 0.75 MG/0.5ML MG/0.5ML MG/0.5ML Aspirin 81 Aspirin 81 No 1{table QD Aspirin 81 81 MG 81 MG t} 81 MG Amaryl 4 MG Amaryl 4 MG No 1{table BID Amaryl 4 t_with_ MG food} Glyxambi Glyxambi No Glyxambi 25mg/5mg 25mg/5mg 25mg/5mg Oxybutynin Oxybutynin No 1{table QD Oxybutynin Chloride 5 Chloride 5 t} Chloride 5 MG MG MG Potassium Potassium No 1{table Potassium Chloride ER Chloride ER t_with_ Chloride 20 MEQ 20 MEQ food} ER 20 MEQ Enalapril Enalapril No Enalapril Maleate 20 Maleate 20 Maleate 20 MG MG MG metFORMIN metFORMIN No 1{table BID metFORMIN HCl 1000 MG HCl 1000 MG t_with_ HCl 1000 meals} MG Propranolol Propranolol No 1{table BID Propranolo HCl 20 MG HCl 20 MG t} l HCl 20 MG Atorvastati Atorvastati No Atorvastat n Calcium n Calcium in Calcium 10 MG 10 MG 10 MG Glyxambi Glyxambi No Glyxambi 25-5 MG 25-5 MG 25-5 MG Glimepiride Glimepiride No Glimepirid 4 MG 4 MG e 4 MG Finasteride Finasteride No 1{table QD Finasterid 5 MG 5 MG t} e 5 MG Propranolol Propranolol No 1{table QD Propranolo HCl 20 MG HCl 20 MG t} l HCl 20 MG Pioglitazon Pioglitazon No 1{table QD Pioglitazo e HCl 30 MG e HCl 30 MG t} ne HCl 30 MG Tamsulosin Tamsulosin No 1{capsu QD Tamsulosin HCl 0.4 MG HCl 0.4 MG le} HCl 0.4 MG Gabapentin Gabapentin No 1{capsu Gabapentin 300 MG 300 MG le} 300 MG SMZ-TMP DS SMZ-TMP DS No SMZ-TMP DS Gabapentin Gabapentin No 1{capsu Gabapentin 300 MG 300 MG le} 300 MG Myrbetriq Myrbetriq No 1{table BID Myrbetriq 25 MG 25 MG t} 25 MG Furosemide Furosemide No 1{table Furosemide 40 MG 40 MG t} 40 MG Trulicity Trulicity No Trulicity 0.75 0.75 0.75 MG/0.5ML MG/0.5ML MG/0.5ML Aspirin 81 Aspirin 81 No 1{table QD Aspirin 81 81 MG 81 MG t} 81 MG Amaryl 4 MG Amaryl 4 MG No 1{table BID Amaryl 4 t_with_ MG food} Glyxambi Glyxambi No Glyxambi 25mg/5mg 25mg/5mg 25mg/5mg Oxybutynin Oxybutynin No 1{table QD Oxybutynin Chloride 5 Chloride 5 t} Chloride 5 MG MG MG Potassium Potassium No 1{table Potassium Chloride ER Chloride ER t_with_ Chloride 20 MEQ 20 MEQ food} ER 20 MEQ Enalapril Enalapril No Enalapril Maleate 20 Maleate 20 Maleate 20 MG MG MG metFORMIN metFORMIN No 1{table BID metFORMIN HCl 1000 MG HCl 1000 MG t_with_ HCl 1000 meals} MG Propranolol Propranolol No 1{table BID Propranolo HCl 20 MG HCl 20 MG t} l HCl 20 MG Atorvastati Atorvastati No Atorvastat n Calcium n Calcium in Calcium 10 MG 10 MG 10 MG Glyxambi Glyxambi No Glyxambi 25-5 MG 25-5 MG 25-5 MG Glimepiride Glimepiride No Glimepirid 4 MG 4 MG e 4 MG Finasteride Finasteride No 1{table QD Finasterid 5 MG 5 MG t} e 5 MG Propranolol Propranolol No 1{table QD Propranolo HCl 20 MG HCl 20 MG t} l HCl 20 MG Pioglitazon Pioglitazon No 1{table QD Pioglitazo e HCl 30 MG e HCl 30 MG t} ne HCl 30 MG Tamsulosin Tamsulosin No 1{capsu QD Tamsulosin HCl 0.4 MG HCl 0.4 MG le} HCl 0.4 MG Gabapentin Gabapentin No 1{capsu Gabapentin 300 MG 300 MG le} 300 MG SMZ-TMP DS SMZ-TMP DS No SMZ-TMP DS Gabapentin Gabapentin No 1{capsu Gabapentin 300 MG 300 MG le} 300 MG Myrbetriq Myrbetriq No 1{table BID Myrbetriq 25 MG 25 MG t} 25 MG Furosemide Furosemide No 1{table Furosemide 40 MG 40 MG t} 40 MG Trulicity Trulicity No Trulicity 0.75 0.75 0.75 MG/0.5ML MG/0.5ML MG/0.5ML Aspirin 81 Aspirin 81 No 1{table QD Aspirin 81 81 MG 81 MG t} 81 MG Amaryl 4 MG Amaryl 4 MG No 1{table BID Amaryl 4 t_with_ MG food} Glyxambi Glyxambi No Glyxambi 25mg/5mg 25mg/5mg 25mg/5mg Glyxambi Glyxambi No Glyxambi 25-5 MG 25-5 MG 25-5 MG Glyxambi Glyxambi No Glyxambi 25mg/5mg 25mg/5mg 25mg/5mg Atorvastati Atorvastati No Atorvastat n Calcium n Calcium in Calcium 10 MG 10 MG 10 MG Pioglitazon Pioglitazon No Pioglitazo e HCl 30 MG e HCl 30 MG ne HCl 30 MG Finasteride Finasteride No 1{table QD Finasterid 5 MG 5 MG t} e 5 MG Amaryl 4 MG Amaryl 4 MG No 1{table BID Amaryl 4 t_with_ MG food} Gabapentin Gabapentin No 1{capsu Gabapentin 300 MG 300 MG le} 300 MG Myrbetriq Myrbetriq No 1{table BID Myrbetriq 25 MG 25 MG t} 25 MG Oxybutynin Oxybutynin No 1{table QD Oxybutynin Chloride 5 Chloride 5 t} Chloride 5 MG MG MG Aspirin 81 Aspirin 81 No 1{table QD Aspirin 81 81 MG 81 MG t} 81 MG Trulicity Trulicity No Trulicity 0.75 0.75 0.75 MG/0.5ML MG/0.5ML MG/0.5ML SMZ-TMP DS SMZ-TMP DS No SMZ-TMP DS Propranolol Propranolol No 1{table BID Propranolo HCl 20 MG HCl 20 MG t} l HCl 20 MG Furosemide Furosemide No 1{table Furosemide 40 MG 40 MG t} 40 MG Propranolol Propranolol No 1{table QD Propranolo HCl 20 MG HCl 20 MG t} l HCl 20 MG Glimepiride Glimepiride No Glimepirid 4 MG 4 MG e 4 MG Pioglitazon Pioglitazon No 1{table QD Pioglitazo e HCl 30 MG e HCl 30 MG t} ne HCl 30 MG Potassium Potassium No 1{table Potassium Chloride ER Chloride ER t_with_ Chloride 20 MEQ 20 MEQ food} ER 20 MEQ Tamsulosin Tamsulosin No 1{capsu QD Tamsulosin HCl 0.4 MG HCl 0.4 MG le} HCl 0.4 MG metFORMIN metFORMIN No 1{table BID metFORMIN HCl 1000 MG HCl 1000 MG t_with_ HCl 1000 meals} MG Enalapril Enalapril No Enalapril Maleate 20 Maleate 20 Maleate 20 MG MG MG Gabapentin Gabapentin No 1{capsu Gabapentin 300 MG 300 MG le} 300 MG Glyxambi Glyxambi No Glyxambi 25mg/5mg 25mg/5mg 25mg/5mg Aspirin 81 Aspirin 81 No 1{table QD Aspirin 81 81 MG 81 MG t} 81 MG metFORMIN metFORMIN No 1{table BID metFORMIN HCl 1000 MG HCl 1000 MG t_with_ HCl 1000 meals} MG Propranolol Propranolol No 1{table QD Propranolo HCl 20 MG HCl 20 MG t} l HCl 20 MG Pioglitazon Pioglitazon No 1{table QD Pioglitazo e HCl 30 MG e HCl 30 MG t} ne HCl 30 MG Oxybutynin Oxybutynin No 1{table QD Oxybutynin Chloride 5 Chloride 5 t} Chloride 5 MG MG MG Amaryl 4 MG Amaryl 4 MG No 1{table BID Amaryl 4 t_with_ MG food} SMZ-TMP DS SMZ-TMP DS No SMZ-TMP DS Glimepiride Glimepiride No Glimepirid 4 MG 4 MG e 4 MG Myrbetriq Myrbetriq No 1{table BID Myrbetriq 25 MG 25 MG t} 25 MG Enalapril Enalapril No Enalapril Maleate 20 Maleate 20 Maleate 20 MG MG MG Atorvastati Atorvastati No Atorvastat n Calcium n Calcium in Calcium 10 MG 10 MG 10 MG Finasteride Finasteride No 1{table QD Finasterid 5 MG 5 MG t} e 5 MG Trulicity Trulicity No Trulicity 0.75 0.75 0.75 MG/0.5ML MG/0.5ML MG/0.5ML Gabapentin Gabapentin No 1{capsu Gabapentin 300 MG 300 MG le} 300 MG Glyxambi Glyxambi No Glyxambi 25-5 MG 25-5 MG 25-5 MG Pioglitazon Pioglitazon No Pioglitazo e HCl 30 MG e HCl 30 MG ne HCl 30 MG Gabapentin Gabapentin No 1{capsu Gabapentin 300 MG 300 MG le} 300 MG Glyxambi Glyxambi No Glyxambi 25mg/5mg 25mg/5mg 25mg/5mg Aspirin 81 Aspirin 81 No 1{table QD Aspirin 81 81 MG 81 MG t} 81 MG metFORMIN metFORMIN No 1{table BID metFORMIN HCl 1000 MG HCl 1000 MG t_with_ HCl 1000 meals} MG Propranolol Propranolol No 1{table QD Propranolo HCl 20 MG HCl 20 MG t} l HCl 20 MG Pioglitazon Pioglitazon No 1{table QD Pioglitazo e HCl 30 MG e HCl 30 MG t} ne HCl 30 MG Oxybutynin Oxybutynin No 1{table QD Oxybutynin Chloride 5 Chloride 5 t} Chloride 5 MG MG MG Amaryl 4 MG Amaryl 4 MG No 1{table BID Amaryl 4 t_with_ MG food} SMZ-TMP DS SMZ-TMP DS No SMZ-TMP DS Glimepiride Glimepiride No Glimepirid 4 MG 4 MG e 4 MG Myrbetriq Myrbetriq No 1{table BID Myrbetriq 25 MG 25 MG t} 25 MG Enalapril Enalapril No Enalapril Maleate 20 Maleate 20 Maleate 20 MG MG MG Atorvastati Atorvastati No Atorvastat n Calcium n Calcium in Calcium 10 MG 10 MG 10 MG Finasteride Finasteride No 1{table QD Finasterid 5 MG 5 MG t} e 5 MG Trulicity Trulicity No Trulicity 0.75 0.75 0.75 MG/0.5ML MG/0.5ML MG/0.5ML Gabapentin Gabapentin No 1{capsu Gabapentin 300 MG 300 MG le} 300 MG Glyxambi Glyxambi No Glyxambi 25-5 MG 25-5 MG 25-5 MG Pioglitazon Pioglitazon No Pioglitazo e HCl 30 MG e HCl 30 MG ne HCl 30 MG Gabapentin Gabapentin No 1{capsu Gabapentin 300 MG 300 MG le} 300 MG Glyxambi Glyxambi No Glyxambi 25mg/5mg 25mg/5mg 25mg/5mg Aspirin 81 Aspirin 81 No 1{table QD Aspirin 81 81 MG 81 MG t} 81 MG metFORMIN metFORMIN No 1{table BID metFORMIN HCl 1000 MG HCl 1000 MG t_with_ HCl 1000 meals} MG Propranolol Propranolol No 1{table QD Propranolo HCl 20 MG HCl 20 MG t} l HCl 20 MG Pioglitazon Pioglitazon No 1{table QD Pioglitazo e HCl 30 MG e HCl 30 MG t} ne HCl 30 MG Oxybutynin Oxybutynin No 1{table QD Oxybutynin Chloride 5 Chloride 5 t} Chloride 5 MG MG MG Amaryl 4 MG Amaryl 4 MG No 1{table BID Amaryl 4 t_with_ MG food} SMZ-TMP DS SMZ-TMP DS No SMZ-TMP DS Glimepiride Glimepiride No Glimepirid 4 MG 4 MG e 4 MG Myrbetriq Myrbetriq No 1{table BID Myrbetriq 25 MG 25 MG t} 25 MG Enalapril Enalapril No Enalapril Maleate 20 Maleate 20 Maleate 20 MG MG MG Atorvastati Atorvastati No Atorvastat n Calcium n Calcium in Calcium 10 MG 10 MG 10 MG Finasteride Finasteride No 1{table QD Finasterid 5 MG 5 MG t} e 5 MG Trulicity Trulicity No Trulicity 0.75 0.75 0.75 MG/0.5ML MG/0.5ML MG/0.5ML Gabapentin Gabapentin No 1{capsu Gabapentin 300 MG 300 MG le} 300 MG Glyxambi Glyxambi No Glyxambi 25-5 MG 25-5 MG 25-5 MG Pioglitazon Pioglitazon No Pioglitazo e HCl 30 MG e HCl 30 MG ne HCl 30 MG Gabapentin Gabapentin No 1{capsu Gabapentin 300 MG 300 MG le} 300 MG Enalapril Enalapril No Enalapril Maleate 20 Maleate 20 Maleate 20 MG MG MG SMZ-TMP DS SMZ-TMP DS No SMZ-TMP DS Myrbetriq Myrbetriq No 1{table BID Myrbetriq 25 MG 25 MG t} 25 MG Pioglitazon Pioglitazon No Pioglitazo e HCl 30 MG e HCl 30 MG ne HCl 30 MG Tamsulosin Tamsulosin No 1{capsu QD Tamsulosin HCl 0.4 MG HCl 0.4 MG le} HCl 0.4 MG metFORMIN metFORMIN No 1{table BID metFORMIN HCl 1000 MG HCl 1000 MG t_with_ HCl 1000 meals} MG Finasteride Finasteride No 1{table QD Finasterid 5 MG 5 MG t} e 5 MG Propranolol Propranolol No 1{table QD Propranolo HCl 20 MG HCl 20 MG t} l HCl 20 MG Gabapentin Gabapentin No 1{capsu Gabapentin 300 MG 300 MG le} 300 MG Gabapentin Gabapentin No 1{capsu Gabapentin 300 MG 300 MG le} 300 MG Aspirin 81 Aspirin 81 No 1{table QD Aspirin 81 81 MG 81 MG t} 81 MG Pioglitazon Pioglitazon No 1{table QD Pioglitazo e HCl 30 MG e HCl 30 MG t} ne HCl 30 MG Amaryl 4 MG Amaryl 4 MG No 1{table BID Amaryl 4 t_with_ MG food} Atorvastati Atorvastati No Atorvastat n Calcium n Calcium in Calcium 10 MG 10 MG 10 MG Glyxambi Glyxambi No Glyxambi 25mg/5mg 25mg/5mg 25mg/5mg Trulicity Trulicity No Trulicity 0.75 0.75 0.75 MG/0.5ML MG/0.5ML MG/0.5ML Oxybutynin Oxybutynin No 1{table QD Oxybutynin Chloride 5 Chloride 5 t} Chloride 5 MG MG MG Glyxambi Glyxambi No Glyxambi 25-5 MG 25-5 MG 25-5 MG Glimepiride Glimepiride No Glimepirid 4 MG 4 MG e 4 MG Gabapentin Gabapentin No 1{capsu Gabapentin 300 MG 300 MG le} 300 MG Pioglitazon Pioglitazon No 1{table QD Pioglitazo e HCl 30 MG e HCl 30 MG t} ne HCl 30 MG Atorvastati Atorvastati No 1{table QD Atorvastat n Calcium n Calcium t} in Calcium 10 MG 10 MG 10 MG Propranolol Propranolol No 1{table BID Propranolo HCl 20 MG HCl 20 MG t} l HCl 20 MG Finasteride Finasteride No 1{table QD Finasterid 5 MG 5 MG t} e 5 MG Aspirin 81 Aspirin 81 No 1{table QD Aspirin 81 81 MG 81 MG t} 81 MG Furosemide Furosemide No 1{table Furosemide 40 MG 40 MG t} 40 MG Glimepiride Glimepiride No 1{table QD Glimepirid 4 MG 4 MG t_with_ e [address]_or_t he_firs t_main_ meal_of _the_da y} Amaryl 4 MG Amaryl 4 MG No 1{table BID Amaryl 4 t_with_ MG food} Glyxambi Glyxambi No Glyxambi 25mg/5mg 25mg/5mg 25mg/5mg Propranolol Propranolol No 1{table QD Propranolo HCl 20 MG HCl 20 MG t} l HCl 20 MG Gabapentin Gabapentin No 1{capsu Gabapentin 300 MG 300 MG le} 300 MG metFORMIN metFORMIN No 1{table BID metFORMIN HCl 1000 MG HCl 1000 MG t_with_ HCl 1000 meals} MG Enalapril Enalapril No 1{table BID Enalapril Maleate 20 Maleate 20 t} Maleate 20 MG MG MG Glyxambi Glyxambi No Glyxambi 25-5 MG 25-5 MG 25-5 MG Tamsulosin Tamsulosin No 1{capsu QD Tamsulosin HCl 0.4 MG HCl 0.4 MG le} HCl 0.4 MG Tamsulosin Tamsulosin 2021- No 1{capsu QD Tamsulosin HCl 0.4 MG HCl 0.4 MG 05-02 le} HCl 0.4 MG 00:00 :00 Tamsulosin Tamsulosin 2021- No 1{capsu QD Tamsulosin HCl 0.4 MG HCl 0.4 MG 05-02 le} HCl 0.4 MG 00:00 :00 Tamsulosin Tamsulosin 2021- No 1{capsu QD Tamsulosin HCl 0.4 MG HCl 0.4 MG 05-02 le} HCl 0.4 MG 00:00 :00 Immunizations Ordered Immunization Filled Immunization Date Status Commen ts Source Name Name [facility] 2021-05-12 Com[facility] (Low Dose Vaccine (Low Dose 16:32:00 - [facility] Booster) Booster) [facility] [address] [facility] (Low Dose Vaccine (Low Dose 16:32:00 - [facility] [address] [facility] (Low Dose Vaccine (Low Dose 16:32:00 - [facility] [address] [facility] Com[facility] (Low Dose Vaccine (Low Dose 16:32:00 - [facility] Booster) Booster) [facility] [facility] Com[facility] (Low Dose Vaccine (Low Dose 16:32:00 - [facility] Booster) Booster) [facility] [address] [facility]12 Com[facility] (Low Dose Vaccine (Low Dose 16:32:00 - [facility] Booster) Booster) [facility] [address] [facility]12 Com[facility] (Low Dose Vaccine (Low Dose 16:32:00 - [facility] Booster) Booster) [facility] [address] [facility]-12 Com[facility] (Low Dose Vaccine (Low Dose 16:32:00 - [facility] Booster) Booster) [facility] [address] COVID19 2021-05-12 Completed [facility] (Low Dose Vaccine (Low Dose 16:32:00 - [facility] Booster) Booster) [facility] [facility]-12 Com[facility] (Low Dose Vaccine (Low Dose 16:32:00 - [facility] Booster) Booster) [facility] COVID19 [facility] COVID-19 2021-05-12 Completed [facility] (Low Dose Vaccine (Low Dose 16:32:00 - [facility] Booster[facility] COVID19 [facility] COVID-19 2021-05-12 Completed [facility] (Low Dose Vaccine (Low Dose 16:32:00 - [facility] Booster) [facility] COVID19 [facility] COVID-19 2021-05-12 Completed [facility] (Low Dose Vaccine (Low Dose 16:32:00 - [facility] Booster[facility] Flu[facility] FluAD 2021-05-04 [facility] 16:47:00 - [facility] FluAD FluAD 2021-05-04 Com[facility] 16:47:00 [facility] FluAD FluAD 2021-05-04 Completed [facility] 16:47:00 [facility] FluAD FluAD 2021-05-04 Completed [facility] 16:47:00 - [facility] FluAD FluAD 2021-05-04 Completed [facility] 16:47:00 [facility] FluAD FluAD 2021-05-04 Completed [facility] 16:47:00 [facility] FluAD FluAD 2021-05-04 Completed [facility] 16:47:00 [facility] FluAD FluAD 2021-05-04 Completed [facility] 16:47:00 [facility] FluAD FluAD 2021-05-04 Completed [facility] 16:47:00 [facility] FluAD FluAD 2021-05-04 Completed [facility] 16:47:00 [facility] FluAD FluAD 2021-05-04 Completed [facility] 16:47:00 [facility] FluAD FluAD 2021-05-04 Completed [facility] 16:47:00 [facility] FluAD FluAD 2021-05-04 Completed [facility] 16:47:00 [facility] FluAD FluAD 2021-05-04 Completed [facility] 16:47:00 [facility] FluAD FluAD 2019-04-30 Completed [facility] 16:55:00 - [facility] FluAD FluAD 2019-04-30 Completed [facility] 16:55:00 - [facility] FluAD FluAD 2019-04-30 Completed [facility] 16:55:00 - [facility] FluAD FluAD 2019-04-30 Completed [facility] 16:55:00 - [facility] FluAD FluAD 2019-04-30 Completed [facility] 16:55:00 - [facility] FluAD FluAD 2019-04-30 Completed [facility] 16:55:00 - [facility] FluAD FluAD 2019-04-30 Completed [facility] 16:55:00 - [facility] FluAD FluAD 2019-04-30 Completed [facility] 16:55:00 - [facility] FluAD FluAD 2019-04-30 Completed [facility] 16:55:00 - [facility] FluAD FluAD 2019-04-30 Completed [facility] 16:55:00 - [facility] FluAD FluAD 2019-04-30 Completed [facility] 16:55:00 - [facility] FluAD FluAD 2019-04-30 Completed [facility] 16:55:00 - [facility] FluAD FluAD 2019-04-30 Completed [facility] 16:55:00 - [facility] FluAD FluAD 2019-04-30 Completed [facility] 16:55:00 - [facility] FluAD FluAD 2019-04-30 Completed [facility] 16:55:00 - [facility] FluAD FluAD 2019-04-30 Completed [facility] 16:55:00 - [facility] FluAD FluAD 2019-04-30 Completed [facility] 16:55:00 - [facility] FluAD FluAD 2019-04-30 Completed [facility] 16:55:00 - [facility] FluAD FluAD 2019-04-30 Completed [facility] 00:00:00 - [facility] Prevnar 13 Prevnar 13 2018-07-30 Completed [facility] -Pneumonia Vaccine -Pneumonia Vaccine 15:49:00 - [facility] Prevnar 13 Prevnar 13 2018-07-30 Completed [facility] -[facility] Vaccine -Pneumonia Vaccine 15:49:00 - [facility] Prevnar 13 Prevnar 13 2018-07-30 Completed [facility] -[facility]neum[facility] Vaccine -Pneumonia Vaccine 15:49:00 - [facility] Prevnar 13 Prevnar 13 2018-07-30 Completed [facility] -[facility]neum[facility] Vaccine -Pneumonia Vaccine 15:49:00 [facility] Prevnar 13 Prevnar 13 2018-07-30 Completed [facility] -[facility]neum[facility] Vaccine -Pneumonia Vaccine 15:49:00 - [facility] Prevnar 13 Prevnar 13 2018-07-30 Completed [facility] -[facility]neum[facility] Vaccine -Pneumonia Vaccine 15:49:00 [facility] Prevnar 13 Prevnar 13 2018-07-30 Completed [facility] -[facility]neum[facility] Vaccine -Pneumonia Vaccine 15:49:00 [facility] Prevnar 13 Prevnar 13 2018-07-30 Completed [facility]neum[facility] Vaccine -Pneumonia Vaccine 15:49:00 [facility] Prevnar 13 Prevnar 13 2018-07-30 Completed [facility] Vaccine -Pneumonia Vaccine 15:49:00 - [facility] Prevnar 13 Prevnar 13 2018-07-30 Completed [facility] -[facility]neum[facility] Vaccine -Pneumonia Vaccine 15:49:00 [facility] Prevnar 13 Prevnar 13 2018-07-30 Completed [facility] -[facility]neumonia Vaccine -Pneumonia Vaccine 15:49:00 [facility] Prevnar 13 Prevnar 13 2018-07-30 Completed [facility] -[facility]neum[facility] Vaccine -Pneumonia Vaccine 15:49:00 - [facility] Prevnar 13 Prevnar 13 2018-07-30 Completed [facility] -[facility]neumonia Vaccine -Pneumonia Vaccine 15:49:00 - [facility] Prevnar 13 Prevnar 13 2018-07-30 Completed [facility] -Pneumonia Vaccine -Pneumonia Vaccine 15:49:00 [facility] Prevnar 13 Prevnar 13 2018-07-30 Completed [facility] -Pneumonia Vaccine -Pneumonia Vaccine 15:49:00 [facility] Prevnar 13 Prevnar 13 2018-07-30 Completed [facility] -Pneumonia Vaccine -Pneumonia Vaccine 15:49:00 [facility] Prevnar 13 Prevnar 13 2018-07-30 Completed [facility] -[facility]neumonia Vaccine -Pneumonia Vaccine 15:49:00 [facility] Prevnar 13 Prevnar 13 2018-07-30 Completed [facility] -[facility]neum[facility] Vaccine -Pneumonia Vaccine 15:49:00 - [facility] Prevnar 13 Prevnar 13 2018-07-30 Completed [facility] -[facility]neum[facility] Vaccine -Pneumonia Vaccine 00:00:00 - [facility] FluAD FluAD 2018-04-24 Completed [facility] 17:04:00 - [facility] FluAD FluAD 2018-04-24 Completed [facility] 17:04:00 - [facility] FluAD FluAD 2018-04-24 Completed [facility] 17:04:00 - [facility] FluAD FluAD 2018-04-24 Completed [facility] 17:04:00 - [facility] FluAD FluAD 2018-04-24 Completed [facility] 17:04:00 - [facility] FluAD FluAD 2018-04-24 Completed [facility] 17:04:00 - [facility] FluAD FluAD 2018-04-24 Completed [facility] 17:04:00 - [facility] FluAD FluAD 2018-04-24 Completed [facility] 17:04:00 - [facility] FluAD FluAD 2018-04-24 Completed [facility] 17:04:00 - [facility] FluAD FluAD 2018-04-24 Completed [facility] 17:04:00 - [facility] FluAD FluAD 2018-04-24 Completed [facility] 17:04:00 - [facility] FluAD FluAD 2018-04-24 Completed [facility] 17:04:00 - [facility] FluAD FluAD 2018-04-24 Completed [facility] 17:04:00 - [facility] FluAD FluAD 2018-04-24 Completed [facility] 17:04:00 - [facility] FluAD FluAD 2018-04-24 Completed [facility] 17:04:00 - [facility] FluAD FluAD 2018-04-24 Completed [facility] 17:04:00 - [facility] FluAD FluAD 2018-04-24 Completed [facility] 17:04:00 - [facility] FluAD FluAD 2018-04-24 Completed [facility] 17:04:00 - [facility] Vital Signs Vital Name Observation Time Observation Value Comments Source height 2022-03-16 16:00:00 68 [in_i] Common [facility] weight 2022-03-16 16:00:00 176.2 [lb_av] [facility] temperature 2022-03-16 16:00:00 97.7 [degF] Common [facility] bmi 2022-03-16 16:00:00 26.79 kg/m2 Common [facility] oximetry 2022-03-16 16:00:00 98 % [facility] respiratory rate 2022-03-16 16:00:00 15 /min Comm on [facility] blood pressure 2022-03-16 16:00:00 133 mm[Hg] [facility] - systolic [facility] blood pressure 2022-03-16 16:00:00 71 mm[Hg] Common [facility] - diastolic [facility] height 2021-11-03 16:00:00 68 [in_i] Common [facility] weight 2021-11-03 16:00:00 177.6 [lb_av] [facility] temperature 2021-11-03 16:00:00 97.5 [degF] [facility] bmi 2021-11-03 16:00:00 27 kg/m2 [facility] oximetry 2021-11-03 16:00:00 99 % [facility] respiratory rate 2021-11-03 16:00:00 16 /min Comm on [facility] blood pressure 2021-11-03 16:00:00 139 mm[Hg] Common [facility] - systolic [facility] blood pressure 2021-11-03 16:00:00 81 mm[Hg] [facility] - diastolic [facility] height 2021-08-30 10:20:00 68 [in_i] Common [facility] weight 2021-08-30 10:20:00 179 [lb_av] Common S pirit [facility] bmi 2021-08-30 10:20:00 27.21 kg/m2 Common S pirit [facility] height 2021-08-04 16:20:00 68 [in_i] Common S pirit [facility] weight 2021-08-04 16:20:00 177.8 [lb_av] [facility] - [facility] temperature 2021-08-04 16:20:00 98.0 [degF] Common S pirit [facility] bmi 2021-08-04 16:20:00 27.03 kg/m2 [facility] 2021-08-04 16:20:00 98 % [facility] respiratory rate 2021-08-04 16:20:00 15 /min Comm on [facility] blood pressure 2021-08-04 16:20:00 129 mm[Hg] [facility] - systolic [facility] blood pressure 2021-08-04 16:20:00 78 mm[Hg] [facility] - diastolic [facility] height 2021-05-04 16:00:00 68 [in_i] [facility] 2021-05-04 16:00:00 186 [lb_av] [facility] temperature 2021-05-04 16:00:00 97.3 [degF] Common S pirit [facility] bmi 2021-05-04 16:00:00 28.28 kg/m2 Common S pirit [facility] oximetry 2021-05-04 16:00:00 99 % [facility] 2021-05-04 16:00:00 134 mm[Hg] [facility] - systolic [facility] blood pressure 2021-05-04 16:00:00 60 mm[Hg] [facility] - diastolic [facility] height 2021-05-04 16:00:00 68 [in_i] Common S pirit [facility] weight 2021-05-04 16:00:00 186 [lb_av] Common [facility] temperature 2021-05-04 16:00:00 97.7 [degF] Common [facility] bmi 2021-05-04 16:00:00 28.28 kg/m2 Common [facility] oximetry 2021-05-04 16:00:00 99 % Common S pirit [facility] blood pressure 2021-05-04 16:00:00 151 mm[Hg] [facility] - systolic [facility] blood pressure 2021-05-04 16:00:00 80 mm[Hg] Common [facility] - diastolic [facility] height 2021-02-28 13:00:00 68 [in_i] Common [facility] weight 2021-02-28 13:00:00 182.2 [lb_av] Common [facility] temperature 2021-02-28 13:00:00 97.3 [degF] Common [facility] bmi 2021-02-28 13:00:00 27.7 kg/m2 Common [facility] oximetry 2021-02-28 13:00:00 94 % [facility] respiratory rate 2021-02-28 13:00:00 18 /min Comm on [facility] blood pressure 2021-02-28 13:00:00 124 mm[Hg] [facility] - systolic [facility] blood pressure 2021-02-28 13:00:00 72 mm[Hg] [facility] - diastolic [facility] Systolic blood 2019-01-23 20:42:00 123 mm[Hg] Univer sity of pressure [facility] Diastolic blood 2019-01-23 20:42:00 80 mm[Hg] Unive rsity of pressure [facility] Heart rate 2019-01-23 20:42:00 101 /min [facility] Body temperature 2019-01-23 20:42:00 36.67 [facility] 2019-01-23 20:42:00 16 /min [facility] Body height 2019-01-23 20:42:00 177.8 cm [facility] Body weight 2019-01-23 20:42:00 82.271 kg [facility] BMI 2019-01-23 20:42:00 26.02 kg/m2 [facility] Procedures Procedure Date / Time Performed Performing Clinician Sourc e MR BRAIN WO CONTRAST 2019-01-22 15:25:00 Bhanu Askew [facility] ASSIGNMENT OF BENEFITS 2019-01-22 14:05:46 Doctor Unassigned, No [facility] Encounters Start End Encounter Admission Attending Care Care Encounter Source Date/Time Date/Time Type Type Clinicians Facility Department ID 2022-05-08 Outpatient [facility] [id number] [place] 11:50:43 [id number] Health 2022-03-14 Outpatient Mckinney, Na STLMLC STLMLC [id number] 2 Common 14:56:00 [id number] [facility] 2022-01-31 Outpatient Mckinney, Na STLMLC STLMLC [id number] 2 Common 13:12:00 [id number] [facility] 2021-08-28 Outpatient Mckinney, Na STLMLC STLMLC [id number] 2 Common 08:38:00 [facility] 2021-07-19 Outpatient Mckinney, Na STLMLC STLMLC [id number] 2 Common 14:16:00 [id number] [facility] 2021-07-19 Outpatient Mckinney, Na STLMLC STLMLC [id number] 2 Common 14:01:34 [id number] [facility] 2021-07-19 Outpatient Mckinney, Na STLMLC STLMLC [id number] 2 Common 13:44:11 [id number] [facility] 2021-07-19 Outpatient Mckinney, Na STLMLC STLMLC [id number] 2 Common 13:39:45 [id number] [facility] 2021-07-19 Outpatient Mckinney, Na STLMLC STLMLC [id number] 2 Common 12:29:08 [id number] [facility] 2021-07-19 Outpatient Mckinney, Na STLMLC STLMLC [id number] 2 Common 12:27:34 [id number] [facility] 2021-07-19 Outpatient Mckinney, Na STLMLC STLMLC [id number] 2 Common 12:04:29 [id number] [facility] 2021-07-19 Outpatient Mckinney, Na STLMLC STLMLC [id number] 2 Common 12:02:37 [id number] [facility] 2021-07-19 Outpatient Mckinney, Na STLMLC STLMLC [id number] 2 Common 11:35:04 [id number] [facility] 2021-07-19 Outpatient Mckinney, Na STLMLC STLMLC [id number] 2 Common 11:20:33 [id number] [facility] 2021-07-19 Outpatient Mckinney, Na STLMLC STLMLC [id number] 2 Common 11:05:46 [id number] [facility] 2021-07-19 Outpatient Mckinney, Na STLMLC STLMLC [id number] 2 Common 11:04:11 [id number] [facility] 2021-04-24 Outpatient [facility] [id number] [place] 11:41:32 [facility] 2021-04-11 Outpatient [facility] [id number] [place] 12:03:23 [facility] 2021-04-11 Outpatient [facility] [id number] [place] 12:01:39 [facility] 2021-03-16 [facility] [id number] [place] 13:11:05 [facility] 2022-05-07 2022-05-07 CAV Ye Escalona [id number] CLACXESAAK [facility] 15:30:00 16:30:00 [id number] [id number] [id number] 2022-04-05 2022-04-05 Outpatient Belle Rose_Ayah [facility] [id number] Devoted 00:00:00 00:00:00 [id number] [facility] 2022-03-29 2022-03-29 Outpatient Delbridge_T [facility] [id number] Devoted 00:00:00 00:00:00 Medica l Group 2022-03-16 2022-03-16 OFFICE STLMLC STLMLC [id number] Co mmon 00:00:00 00:00:00 VISIT Spirit ESTAB PT - CHI LEVEL 4 [facility] 2022-02-22 2022-02-22 (TEL) STLMLC STLMLC [id number] Co mmon 00:00:00 00:00:00 [facility] 2022-01-05 2022-01-05 Outpatient [facility] [id number] Devoted 08:03:00 08:03:00 [id number] [facility] 2021-12-08 2021-12-08 (TEL) STLMLC STLMLC [id number] Co mmon 00:00:00 00:00:00 [facility] 2021-11-03 2021-11-03 OFFICE STLMLC STLMLC [id number] Co mmon 00:00:00 00:00:00 VISIT Spirit ESTAB PT - CHI LEVEL 4 [facility] 2021-10-26 2021-10-26 Outpatient [facility] [id number] Devoted 09:01:00 09:01:00 [id number] [facility] 2021-10-25 2021-10-25 Outpatient [facility] [id number] Devoted 07:00:00 07:00:00 [id number] [facility] 2021-08-30 2021-08-30 OFFICE STLMLC STLMLC [id number] Co mmon 00:00:00 00:00:00 VISIT EST Spir it PT LEVEL 3 - CHI [facility] 2021-08-28 2021-08-28 Outpatient [facility] [id number] Devoted 09:00:00 09:00:00 [id number] [facility] 2021-08-23 2021-08-23 (TEL) STLMLC STLMLC [id number] Co mmon 00:00:00 00:00:00 [facility] 2021-08-11 2021-08-11 (TEL) STLMLC STLMLC [id number] Co mmon 00:00:00 00:00:00 Spirit - [facility] 2021-08-04 2021-08-04 OFFICE STLMLC STLMLC [id number] Co mmon 00:00:00 00:00:00 VISIT Spirit ESTAB PT - CHI LEVEL 4 [facility] 2021-06-08 2021-06-08 (TEL) STLMLC STLMLC [id number] Co mmon 00:00:00 00:00:00 Spirit - [facility] 2021-06-01 2021-06-01 (TEL) STLMLC STLMLC [id number] Co mmon 00:00:00 00:00:00 Spirit - [facility] 2021-05-12 2021-05-12 (COVID STLMLC STLMLC [id number] Co mmon 00:00:00 00:00:00 Inj) COVID Spi rit Injection - [facility] 2021-05-04 2021-05-04 OFFICE STLMLC STLMLC [id number] Co mmon 00:00:00 00:00:00 VISIT EST Spir it PT LEVEL 3 - [facility] 2021-05-04 2021-05-04 SUB ANNUAL STLMLC STLMLC [id number] Common 00:00:00 00:00:00 [facility] WELLNESS - CHI VISIT [facility] 2021-04-24 2021-04-24 Office ABDULAZIZ Flynn [facility] [id number] [place] 12:20:17 12:23:23 Visit Bliane PFEIFFER [id number] Joseluis [facility] [id number] [facility] [id number] 2021-04-11 2021-04-11 Office ABDULAZIZ Flynn [facility] [id number] [place] 11:37:35 12:08:38 Visit Blaine LUIS [id number] Joseluis ARENAS 1 [id number] 2021-04-04 2021-04-04 (TEL) STLMLC STLMLC [id number] Co mmon 00:00:00 00:00:00 Spirit [facility] 2021-03-15 2021-03-15 (TEL) STLMLC STLMLC [id number] Co mmon 00:00:00 00:00:00 [facility] 2021-02-28 2021-02-28 OFFICE STLMLC STLMLC [id number] Co mmon 00:00:00 00:00:00 VISIT EST Spir it PT LEVEL 3 [facility] 2021-02-22 2021-02-22 (TEL) STLMLC STLMLC [id number] Co mmon 00:00:00 00:00:00 [facility] 2021-02-22 2021-02-22 OFFICE STLMLC STLMLC [id number] Co mmon 00:00:00 00:00:00 VISIT EST Spir it PT LEVEL 3 [facility] 2021-02-08 2021-02-08 Outpatient STLMLC STLMLC [id number] Common 00:00:00 00:00:00 [facility] 2021-02-07 2021-02-07 Outpatient STLMLC STLMLC [id number] Common 00:00:00 00:00:00 [facility] 2021-01-30 2021-01-30 Outpatient STLMLC STLMLC [id number] Common 00:00:00 00:00:00 [facility] 2021-01-03 2021-01-03 Outpatient STLMLC STLMLC [id number] Common 00:00:00 00:00:00 [facility] 2020-11-01 2020-11-01 Outpatient STLMLC STLMLC [id number] Common 00:00:00 00:00:00 [facility] 2020-09-21 2020-09-21 Outpatient STLMLC STLMLC [id number] Common 00:00:00 00:00:00 [facility] 2020-08-28 2020-08-28 Outpatient [facility] [id number] Univers 15:10:00 15:10:00 ity [facility] 2020-08-25 2020-08-25 Outpatient STLMLC STLMLC [id number] Common 00:00:00 00:00:00 [facility] 2020-08-02 2020-08-02 Outpatient STLMLC STLMLC [id number] Common 00:00:00 00:00:00 [facility] 2020-07-31 2020-07-31 Outpatient Dawit ARIAS, [facility] [id number] Univers 15:10:00 15:10:00 KIM camara [facility] 2020-06-03 2020-06-03 Outpatient Kenyon, [facility] [id number] [facility] 11:45:00 11:45:00 Alban 50 2020-06-03 2020-06-03 Outpatient Kenyon, [facility] [id number] [facility] 10:15:00 10:15:00 Alban 43 2020-06-03 2020-06-03 Outpatient [facility] [id number] [facility] 05:56:00 05:56:00 43 2020-05-19 2020-05-19 Outpatient STLMLC STLMLC [id number] Common 00:00:00 00:00:00 [facility] 2020-05-16 2020-05-16 Outpatient Elective Kenyon, [facility] [id number] 10:36:00 10:36:00 Alban 03 2020-05-02 2020-05-02 Outpatient STLMLC STLMLC [id number] Common 00:00:00 00:00:00 [facility] 2020-04-11 2020-04-11 Outpatient STLMLC STLMLC [id number] Common 00:00:00 00:00:00 [facility] 2020-04-04 2020-04-04 Outpatient STLMLC STLMLC [id number] Common 00:00:00 00:00:00 [facility] 2020-01-29 2020-01-29 Out[facility] [id number] Common 16:00:00 16:00:00 t [employer] Spir it Drive [facility] 2020-01-05 2020-01-05 Outpatient [facility] [id number] Common 13:45:00 13:45:00 t [facility] it Road [facility] 2019-10-29 2019-10-29 Outpatient [facility] [id number] Common 16:40:00 16:40:[address] [facility] 2019-07-31 2019-07-31 Outpatient [facility] [id number] Common 16:00:00 16:00:[address] [facility] 2019-07-24 2019-07-24 Outpatient [facility] [id number] Common 13:38:00 13:38:[address] [facility] 2019-07-22 2019-07-22 Outpatient [facility] [id number] Common 14:56:00 14:56:[address] [facility] 2019-04-30 2019-04-30 Outpatient [facility] [id number] Common 15:40:00 15:40:[address] [facility] 2019-04-29 2019-04-29 Outpatient [facility] [id number] Common 11:01:00 11:01:[address] [facility] 2019-03-10 2019-03-10 Outpatient [facility] [id number] Common 10:42:00 10:42:[address] [facility] 2019-02-17 2019-02-17 Outpatient [facility] [id number] Common 14:40:00 14:40:[address] [facility] 2019-01-27 2019-01-27 Outpatient [facility] [id number] Common 16:00:00 16:00:[address] [facility] 2019-01-23 2019-01-23 Office Azar [facility] [id number] [facility] 14:48:40 16:58:59 Visit Bhanu Silva [id number] [place] [id number] Tanya Oliveira [id number] Ok dical nal [address] 2019-01-22 2019-01-22 [facility] [id number] Univers 09:11:08 23:59:00 Encounter Bhanu Silva [id number] ity [id number] [id number] [facility] [address] 2019-01-22 2019-01-22 Orders Doctor DORSEY [id number] Univers 00:00:00 00:00:00 Only Unassigned, LYUDMILA [id number] ity of [place] [facility] [id number] [place] [id number] [facility] [address] 2018-12-30 2018-12-30 Outpatient [facility] [id number] Common 15:55:00 15:55:[address] [facility] 2018-12-03 2018-12-03 Outpatient [facility] [id number] Common 16:44:00 16:44:[address] [facility] 2018-10-07 2018-10-07 Outpatient [facility] [id number] Common 09:18:00 09:18:[address] [facility] 2018-07-30 2018-07-30 Outpatient [facility] [id number] Common 15:00:00 15:00:[address] [facility] 2018-07-22 2018-07-22 Outpatient [facility] [id number] Common 10:45:00 10:45:[address] [facility] 2018-07-03 2018-07-03 Outpatient [facility] [id number] Common 15:56:00 15:56:[address] [facility] 2018-07-03 2018-07-03 Outpatient [facility] [id number] Common 13:29:00 13:29:[address] [facility] 2018-04-24 2018-04-24 Outpatient STLMLC STLMLC [id number] Common 00:00:00 00:00:00 [facility] 2018-01-22 2018-01-22 Outpatient Jake Josepht [id number] Common 15:30:00 15:30:00 t [employer] Spir it Drive [facility] Results Test Description Test Time Test Comments Results Result Comments Source Lipid Panel w/ Chol/HDL Ratio 2021-08-09 00:00:00 Test Item Value Reference Range Interpretation Comme nts Cholesterol, Total (test code = 2093-3) 138 100-199 Triglycerides (test code = 2571-8) 43 0-149 HDL Cholesterol (test code = 2085-9) 49 >39 T. Chol/HDL Ratio (test code = 9830-1) 2.8 0.0-5.0 Microalbumin/Creat Ratio, Random [id number] 00:00:00 Test Item Value Reference Range Interpretation Comments Creatinine, Urine (test code = 2161-8) 84.2 Not Estab. Albumin, Urine (test code = 83296-8) 6.4 Not Estab. Alb/Creat Ratio (test code = 39337-6) 8 0-29 Hemoglobin [id number] 00:00:00 Test Item Value Reference Range Interpretation Comments Hemoglobin A1c (test code = 4548-4) 6.9 4.8-5.6 Comp. Metabolic Panel (14) (CMP)2021-08-09 00:00:00 Test Item Value Reference Range Interpretation Comments Glucose (test code = 2345-7) 82 65-99 BUN (test code = 3094-0) 20 8-27 Creatinine (test code = 2160-0) 0.93 0.76-1.27 eGFR If NonAfricn Am (test code = 83 >59 41373-3) eGFR If Africn Am (test code = 22836-0) 96 >59 BUN/Creatinine Ratio (test code = 22 10-24 3097-3) Sodium (test code = 2951-2) 141 134-144 Potassium (test code = 2823-3) 4.6 3.5-5.2 Chloride (test code = 2075-0) 105 96-106 Carbon Dioxide, Total (test code = 20-29 2027-9) Calcium (test code = 65651-4) 10.2 8.6-10.2 Protein, Total (test code = 2885-2) 6.8 6.0-8.5 Albumin (test code = 1751-7) 4.4 3.8-4.8 Globulin, Total (test code = 64480-2) 2.4 1.5-4.5 A/G Ratio (test code = 1759-0) 1.8 1.2-2.2 Bilirubin, Total (test code = 1974-2) 0.3 0.0-1.2 Alkaline Phosphatase (test code = 90 44-121 6768-6) AST (SGOT) (test code = 1920-8) 17 0-40 ALT (SGPT) (test code = 1742-6) 16 0-44 CBC With Differential/[id number] 00:00:00 Test Item Value Reference Range Interpretation Comments WBC (test code = 6690-2) 10.9 3.4-10.8 RBC (test code = 789-8) 4.96 4.14-5.80 Hemoglobin (test code = 718-7) 14.4 13.0-17.7 Hematocrit (test code = 4544-3) 43.4 37.5-51.0 MCV (test code = 787-2) 88 79-97 MCH (test code = 785-6) 29.0 26.6-33.0 MCHC (test code = 786-4) 33.2 31.5-35.7 RDW (test code = 788-0) 14.7 11.6-15.4 Platelets (test code = 777-3) 278 150-450 Neutrophils (test code = 770-8) 32 Not Estab. Lymphs (test code = 736-9) 53 Not Estab. Monocytes (test code = 5905-5) 12 Not Estab. Eos (test code = 713-8) 2 Not Estab. Basos (test code = 706-2) 1 Not Estab. Immature Cells (test code = UNLOINC) Neutrophils (Absolute) (test code = 3.5 1.4-7.0 751-8) Lymphs (Absolute) (test code = 731-0) 5.8 0.7-3.1 Monocytes(Absolute) (test code = 742-7) 1.3 0.1-0.9 Eos (Absolute) (test code = 711-2) 0.2 0.0-0.4 Baso (Absolute) (test code = 704-7) 0.1 0.0-0.2 Immature Granulocytes (test code = 0 Not Estab. 15190-6) Immature Grans (Abs) (test code = 0.0 0.0-0.1 06203-9) NRBC (test code = 22987-9) Hematology Comments: (test code = Note: 59303-8) Glucose [id number] 11:29:00 Test Item Value Reference Range Interpretation Comments Glucose Fingerstick 238 mg/dL 70-115 VENEER SPLICER RONDON (test code = WGLUC) Kash montague RN or Glucose [id number] 07:40:00 Test Item Value Reference Range Interpretation Comments Glucose Fingerstick 134 mg/dL 70-115 VENEER SPLICER RONDON (test code = WGLUC) Kash montague RN or Glucose [id number] 17:46:00 Test Item Value Reference Range Interpretation Comments Glucose Fingerstick 227 mg/dL 70-115 VENEER SPLICER Chantale (test code = WGLUC) Kahlil chahal RN or MD Glucose [id number] 10:53:00 Test Item Value Reference Range Interpretation Comments Glucose Fingerstick 83 mg/dL 70-115 VENEER SPLICER Reva (test code = WGLUC) Mary Jo Glucose [id number] 07:04:00 Test Item Value Reference Range Interpretation Comments Glucose Fingerstick 89 mg/dL 70-115 VENEER SPLICER MONICO TRAOREMadison (test code = WGLUC) MR BRAIN WO [id number] 15:42:56HISTORY: Tremors. Rule out subthalamic CVA. TECHNIQUE: Routine MRI of the brain was completed without contrastinjection technique. Examination includes sagittal T1/T2 FLAIR/3-D FSPGR,axial T2 FLAIR, DWI/ADC studies. From the 3-D imaging, subsequently axialand coronal reformations were generated. An additional gradient echo T2*axial study was also obtained. FINDINGS: Dual echo DWI images showed no focal areas of restricted protondiffusion, therefore, recent intracranial cytotoxic event is not suspecte d.Gradient-echo T2 star images showed no focal areas of abnormal signalsuggestive of hemosiderin effect or abnormal mineral deposition in thebasal ganglia. T2 and FLAIR images showed several 2 mm to 2 cm size hyperintense lesionsin both periventricular as well as peripheral white matter involvingfrontal/parietal/occipital lobes. One small 3 mm lacunar infarction is seenin the white matter adjacent tothe atrium of left lateral ventricle. Ventricular system and cortical sulci are within normal limitsfor thepatient's age. No midline shift or abnormal fluid collection in theextra-axial compartment orpressure effect of the brain detected. Normal signal [...] occipital lobe near theatrium of lateral ventricle.3. Zphk-yq-zfcapwqa ischemic white matter degenerative changes in theperiventricular as well as peripheral white matter of both cerebralhemispheres, possibly due to combination of systemic hypertension as wellas small vessel disease. Please correlate with history. [facility], Radiant Results Inft User - 01/22/2019 10:43 AM CDTHISTORY: Tremors. Rule out subthalamic CVA.TECHNIQUE: Routine MRI of the brain was completed without co ntrastinjection technique. Examination includes sagittal T1/T2 FLAIR/3-D FSPGR,axial T2 FLAIR, DWI/ADC studies. From the 3-D imaging, subsequently axialand coronal reformations were generated. An additional gradient echo T2*axial study was also obtained.FINDINGS: Dual echo DWI images showed no focal areas of restricted protondiffusion, therefore, recent intracranial cytotoxic event is not suspected.Gradient-echo T2 star images showed no focal areas of abnormal signalsuggestive of hemosiderin effect or abnormal mineral deposition in thebasal ganglia.T2 and FLAIR images showed several 2 mm to 2 cm size hyperintense lesionsin both periventricular as well as peripheral white matter involvingfrontal/parietal/occipital lobes. One small 3 mm lacunar infarction is seenin the white matter adjacent to the atrium of left lateral ventricle.Ventricular system and cortical sulci are within normal limits for th epatient's age. No midline shift or abnormal fluid [...] left maxillary sinus raisingconcern for superimposed mild acuteleft maxillary sinusitis.CONCLUSION:1. No acute intracranial findings.2. 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 [id number] ischemic white matter degenerative changes in theperiventricular as well as peripheral white matter of both cer ebralhemispheres, possibly due to combination of systemic hypertension as wellas small vessel disease. Please correlate with history.[facility]
[2022-06-22 10:50] LABS: Hematocrit 42.8 % (39.6-49.0); Lymphocytes % 60.9 % (15.3-44.8); MCV 87.4 fL (80-100); MPV 8.4 fL (7.6-11.3)
[2022-06-22 11:06] LABS: Albumin 3.8 g/dL (3.4-5.0); Bilirubin Total 0.5 mg/dL (0.2-1.0); Potassium 4.4 mmol/L (3.5-5.1); Protein, Total 8.3 g/dL (6.4-8.2)
--- NOTE | 2022-06-22 11:11 | RAD REPORT ---
EXAM DESCRIPTION: CT - Abdomen Pelvis W Contrast - 06/22/2022 10:46 am CLINICAL HISTORY: abd pain COMPARISON: No comparisons TECHNIQUE: Biphasic, helical CT imaging of the abdomen and pelvis was performed following 100 ml non -ionic IV contrast. Oral contrast: No. All CT scans are performed using dose optimization technique as appropriate and may include automated exposure control or mA/KV adjustment according to patient size. FINDINGS: No suspicious findings in the lung bases. The liver, spleen, and pancreas show no suspicious findings. Gallbladder and biliary tree are also wi thout suspicious finding. 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 Symmetric renal function is seen with no hydronephrosis or suspicious renal mass. No pyelonephritis o r acute parenchymal process. Bilateral renal cysts are present more numerous and larger on the left. Largest left cyst is 4.8 cm. No adrenal abnormalities. Partially filled urinary bladder shows no susp icious finding. No stomach or small bowel abnormality seen. No evidence for appendicitis. Moderate stool volume is se en throughout the colon with no acute colon process identifiable. Circumferential narrowing of the re ctum is believed to be peristalsis artifact. The perirectal fat shows no stranding, edema or lymphade nopathy. The patient does have a few small lymph nodes in the central mesentery. No free air, free f luid or inflammatory stranding. No hernia, mass or bulky lymphadenopathy. Penile prosthesis in place . There is asymmetry in the density of the implant and there may be absent or diminished functionalit y. No emergent component. Disc and bone degenerative changes are present most pronounced at the L5-S1 level. IMPRESSION: Contrast enhanced CT abdomen and pelvis showing no emergent finding. A few small nonspecific mesenteric lymph nodes present.
[2022-06-22 12:26] LABS: Anisocytosis 1+; Blood Morphology Comment NOTED (NOT SEEN); Platelet Estimate ADEQ
--- NOTE | 2022-06-22 13:30 | ER ---
Nurse's Notes [facility] Name: Jose [facility] Age: 72 yrs Sex: Male : 1950 Arrival Date: 06/22/2022 Time: 09:39 Bed 8 Private MD: Dilma Mckinney Diagnosis: Abdominal pain, Generalized;Elevated white blood cell count Presentation: 06/22 10:03 Chief complaint: Patient states: abd pain X 2 weeks, n/v last night. Coronavirus iw screen: At this time, the client does not indicate any symptoms associated with coronavirus-19. Ebola Screen: Patient negative for fever greater than or equal to 101.5 degrees Fahrenheit, and additional compatible Ebola Virus Disease symptoms Patient denies exposure to infectious person. Patient denies travel to an Ebola-affected area in the 21 days before illness onset. No symptoms or risks identified at this time. Initial Sepsis Screen: Does the patient meet any 2 criteria? No. Patient's initial sepsis screen is negative. Does the patient have a suspected source of infection? No. Patient's initial sepsis screen is negative. Risk Assessment: Do you want to hurt yourself or someone else? Patient reports no desire to harm self or others. Onset of symptoms was June 07, 2022. 10:03 Acuity: SUAD 3 iw 11:26 Method Of Arrival: Ambulatory ph Historical: - Allergies: 10:04 No Known Allergies; iw - PMHx: 10:04 diabetes mellitus; Hypertensive disorder; Hypercholesterolemia; iw - PSHx: 10:04 Appendectomy; iw - Immunization history:: Client reports receiving the 2nd dose of the Covid vaccine. - Social history:: Smoking status: Patient denies any tobacco usage or history of. Screenin:29 [facility] ED Fall Risk Assessment (Adult) History of falling in the last 3 months, ph including since admission No falls in past 3 months (0 pts). Abuse screen: Denies threats or abuse. Denies injuries from another. Nutritional screening: No deficits noted. Tuberculosis screening: No symptoms or risk factors identified. Assessment: 10:46 Reassessment: Patient appears in no apparent distress at this time. spouse is at db bedside. 11:01 Reassessment: Patient appears in no apparent distress at this time. Patient and/or db family updated on plan of care and expected duration. Pain level reassessed. Patient is alert, oriented x 3, equal unlabored respirations, skin warm/dry/pink. General: Appears in no apparent distress. comfortable, Behavior is calm, cooperative, appropriate for age, quiet. Pain: Complains of pain in abdomen. Pain:. Neuro: No deficits noted. Level of Consciousness is awake, alert, obeys commands, Oriented to person, place, time, situation, Appropriate for age. Cardiovascular: No deficits noted. Respiratory: No deficits noted. Airway is patent. GI: No deficits noted. Bowel sounds present X 4 quads. Abd is soft Abdomen is tender to palpation X 4 quads. patient states abdomen is "sore". : No deficits noted. No signs and/or symptoms were reported regarding the genitourinary system. 11:26 Reassessment: Patient appears in no apparent distress at this time. Patient and/or ph family updated on plan of care and expected duration. Pain level reassessed. Patient is alert, oriented x 3, equal unlabored respirations, skin warm/dry/pink. 13:00 Reassessment: Patient appears in no apparent distress at this time. Patient and/or db family updated on plan of care and expected duration. Pain level reassessed. Patient is alert, oriented x 3, equal unlabored respirations, skin warm/dry/pink. 14:24 Reassessment: Patient appears in no apparent distress at this time. Patient and/or db family updated on plan of care and expected duration. Pain level reassessed. Patient is alert, oriented x 3, equal unlabored respirations, skin warm/dry/pink. Patient states feeling better. Patient states symptoms have improved. Vital Signs: 10:03 BP 147 / 93; Pulse 79; Resp 18; Temp 98.0; Pulse Ox 100% on R/A; Weight 81.65 kg; iw Height 5 ft. 9 in. (175.26 cm); Pain 5/10; 10:55 BP 144 / 89; Pulse 74; Resp 16; Pulse Ox 95% on R/A; db 11:26 BP 143 / 86; Pulse 74; Resp 18; Pulse Ox 97% on R/A; ph 14:24 BP 137 / 86; Pulse 70; Resp 18; Temp 98; Pulse Ox 100% ; db 10:03 Body Mass Index 26.58 (81.65 kg, 175.26 cm) iw ED Course: 09:39 Patient arrived in ED. rg4 09:39 Dilma Mckinney MD is Private Physician. rg4 09:45 [facility] Norris [facility]C [facility] kb 09:45 Michael Bocanegra MD is Attending Physician. kb 10:04 Triage completed. iw 10:04 Arm band placed on. iw 10:28 Raiza Whipple, RN is Primary Nurse. ph 10:29 Patient has correct armband on for positive identification. Bed in low position. Call ph light in reach. Side rails up X 1. Pulse ox on. NIBP on. 10:38 CBC with Diff Sent. bc6 10:38 CMP Sent. bc6 10:38 Lipase Sent. bc6 10:38 Inserted saline lock: 20 gauge in right antecubital area, using aseptic technique. bc6 10:39 Initial lab(s) drawn, by me. bc6 10:47 Abdomen In Process Unspecified. EDMS 14:24 No provider procedures requiring assistance completed. IV discontinued, intact, db bleeding controlled, No redness/swelling at site. Administered Medications: No medications were administered Medication: 10:30 VIS not applicable for this client. ph Outcome: 13:29 Discharge ordered by . kb 14:24 Discharged to home ambulatory. db 14:24 Condition: stable 14:24 Discharge instructions given to patient, family, Instructed on discharge instructions, Demonstrated understanding of instructions. 14:25 Patient left the ED. db Signatures: Dispatcher [employer] EDWA Maura Norris FNP-C FNP-Juliana Machuca RN RN Raiza Whipple, RN RN ph Cyndee Paige rg4 Natasha Jade RN RN db Tessa Atwood bc6
--- NOTE | 2022-06-22 13:30 | EDPHYS ---
Physician Documentation [facility] Name: Jose Scott Age: 72 yrs Sex: Male : 1950 Arrival Date: 06/22/2022 Time: 09:39 Bed 8 Private MD: Dilma Mckinney ED Physician Michael Bocanegra HPI: 06/22 13:53 This 72 yrs old Black Male presents to ER via Ambulatory with complaints of Abdominal kb Pain. 13:53 The patient presents with abdominal pain that is diffuse. Onset: The symptoms/episode kb began/occurred 2 week(s) ago. The symptoms do not radiate. Associated signs and symptoms: Pertinent positives: nausea and vomiting, constipation. The symptoms are described as constant. Modifying factors: The symptoms are alleviated by nothing, the symptoms are aggravated by nothing. Severity of pain: At its worst the pain was mild in the emergency department the pain is unchanged. The patient has not experienced similar symptoms in the past. The patient has not recently seen a physician. Pt reports abdominal fullness for 2 weeks. states he has been having small bowel movements, but feels like he isn't getting everything out. Drank some milk of magnesia last night, then a sprite and had an episode of vomiting. . Historical: - Allergies: 10:04 No Known Allergies; iw - PMHx: 10:04 diabetes mellitus; Hypertensive disorder; Hypercholesterolemia; iw - PSHx: 10:04 Appendectomy; iw - Immunization history:: Client reports receiving the 2nd dose of the Covid vaccine. - Social history:: Smoking status: Patient denies any tobacco usage or history of. ROS: 13:53 Constitutional: Negative for fever, chills, and weight loss. kb 13:53 Abdomen/GI: Positive for abdominal pain, nausea and vomiting, constipation. 13:53 All other systems are negative. Exam: 13:53 Constitutional: This is a well developed, well nourished patient who is awake, alert, kb and in no acute distress. Head/Face: Normocephalic, atraumatic. ENT: Moist Mucous membranes Cardiovascular: Regular rate and rhythm with a normal S1 and S2. No gallops, murmurs, or rubs. No pulse deficits. Respiratory: Respirations even and unlabored. No increased work of breathing. Talking in full sentences Skin: Warm, dry with normal turgor. Normal color. MS/ Extremity: Pulses equal, no cyanosis. Neurovascular intact. Full, normal range of motion. Neuro: Awake and alert, GCS 15, oriented to person, place, time, and situation. Moves all extremities. Normal gait. Psych: Awake, alert, with orientation to person, place and time. Behavior, mood, and affect are within normal limits. 13:53 Abdomen/GI: Inspection: abdomen appears normal, Bowel sounds: normal, in all quadrants, Palpation: soft, in all quadrants, mild abdominal tenderness, in all quadrants. Vital Signs: 10:03 BP 147 / 93; Pulse 79; Resp 18; Temp 98.0; Pulse Ox 100% on R/A; Weight 81.65 kg; iw Height 5 ft. 9 in. (175.26 cm); Pain 5/10; 10:55 BP 144 / 89; Pulse 74; Resp 16; Pulse Ox 95% on R/A; db 11:26 BP 143 / 86; Pulse 74; Resp 18; Pulse Ox 97% on R/A; ph 14:24 BP 137 / 86; Pulse 70; Resp 18; Temp 98; Pulse Ox 100% ; db 10:03 Body Mass Index 26.58 (81.65 kg, 175.26 cm) iw MDM: 10:03 Patient medically screened. kb 13:56 Data reviewed: vital signs, nurses notes. Data interpreted: Pulse oximetry: on room air kb is 97 %. Interpretation: normal. Counseling: I had a detailed discussion with the patient and/or guardian regarding: the historical points, exam findings, and any diagnostic results supporting the discharge/admit diagnosis, lab results, radiology results, the need for outpatient follow up, a family practitioner, a development officer, to return to the emergency department if symptoms worsen or persist or if there are any questions or concerns that arise at home. 06/22 09:56 Order name: CBC with Diff; Complete Time: 12:35 iw 06/22 09:56 Order name: CMP; Complete Time: 11:17 iw 06/22 09:56 Order name: Lipase; Complete Time: 11:17 iw 06/22 09:56 Order name: CT Abd/Pelvis - IV Contrast Only iw 06/22 10:58 Order name: Manual Differential; Complete Time: 12:35 EDMS 06/22 12:05 Order name: CREATININE WHOLE BLOOD; Complete Time: 12:09 EDMS 06/22 09:56 Order name: IV Saline Lock; Complete Time: 10:38 iw 06/22 09:56 Order name: Labs collected and sent; Complete Time: 10: iw 06/22 10:00 Order name: Abdomen ; Complete Time: 11:17 EDMS Administered Medications: No medications were administered Disposition: 15:18 Co-signature as Attending Physician, Michael Bocanegra MD. rn Disposition Summary: 06/22/22 13:29 Discharge Ordered Location: Home kb Condition: Stable kb Diagnosis - Abdominal pain, Generalized kb - Elevated white blood cell count kb Followup: kb - With: Emergency Department - When: As needed - Reason: Worsening of condition Followup: kb - With: Private Physician - When: 2 - 3 days - Reason: Recheck today's complaints, Continuance of care, Re-evaluation by your physician Discharge Instructions: - Discharge Summary Sheet kb - Abdominal Pain, Adult, [id number] kb - Leukocytosis kb Forms: - Medication Reconciliation Form kb - Thank You Letter kb - Antibiotic Education kb - Prescription Opioid Use kb Signatures: Dispatcher [employer] EDMS Maura Norris, TAJ-C TAJ-Juliana Machuca, RN RN iw Michael Bocanegra MD MD rn
[2022-06-22 14:33] VITALS: BP 137/86; TEMP 98; O2SAT 100
== END 2022-06-22 14:25 | disposition home or self-care (01) ==
LOC: ER 09:33
DX: R10.84 Generalized abdominal pain (principal); D72.829 Elevated white blood cell count, unspecified
CPT/HCPCS: 85025; 36415; 82565; 83690; 80053; 74177; 99284; Q9967